=== PATIENT | female | born 1930 | race Caucasian/White ===

== ENCOUNTER → 2017-09-17 18:16 | Emergency (ER) | payer MEDICARE, BC ==
[~2017-09-17 18:16] MED LIST: Acetaminophen TAB* 325 MG PO ONE; Furosemide IV* 10 MG/ML 2 ML VIAL (20 MG) IV SLOW PU ONE; Iodixanol* (CONTRAST) 320 MG/ML 100 ML SDV IV ONE; Metoprolol Tartrate TAB* 25 MG PO ONE; Nitroglycerin 2% OINT* 1 GM PAK TOPICAL ONE; Nitroglycerin TAB 0.4 MG* 0.4 MG TAB SL ONE
--- NOTE | 2017-09-17 19:22 | RAD ---
INDICATION: Short of breath COMPARISON: July 01, 2017 TECHNIQUE: An AP portable view obtained at 1910 hours is submitted. FINDINGS: Bones/Soft Tissues: There are no acute bony findings. Cardiomediastinal: The mucosal structures appear unchanged but there is limited evaluation due to the mediastinal shift.. Lungs: There is right-sided pneumonectomy with resultant opacification right hemithorax. There are clips in the right mediastinum. The left lung is clear. Pleura: There are no pleural effusions. Other: None IMPRESSION: RIGHT PNEUMECTOMY. NO ACTIVE DISEASE.
[2017-09-17 19:44] LABS: Hematocrit 34 % (35-47); Hemoglobin 10.8 g/dl (12.0-16.0); Mean Corpuscular HGB Conc 32 g/dl (31-36); Mean Corpuscular Hemoglobin 31 pg (27-31); Mean Corpuscular Volume 96 fL (80-97); Mean Platelet Volume 8 um3 (7.4-10.4); Platelet Count 177 10^3/ul (150-450); Red Blood Count 3.51 10^6/ul (4.0-5.4); Red Cell Distribution Width 15 % (10.5-15); White Blood Count 15.8 10^3/ul (3.5-10.8)
[2017-09-17 19:57] LABS: EGFR Non-African American 50.2 (>60)
[2017-09-17 21:03] LABS: ABS Basophils 0.1 10^3/ul (0-0.2); ABS Eosinophils 0 10^3/ul (0-0.6); ABS Lymphocytes 0.7 10^3/ul (1.0-4.8); ABS Monocytes 3.7 10^3/ul (0-0.8); ABS Neutrophils 11.4 10^3/ul (1.5-7.7); ABS Nucleated RBC 0 10^3/ul; Eosinophil % 0.1 % (0-6); Lymphocyte % 4.4 % (25-47); Nucleated Red Blood Cells % 0
--- NOTE | 2017-09-17 23:47 | ED ---
Nik Veras Nilda, scribed for Phill Jha MD on 09/17/17 at 1902 . Respiratory - HPI Summary HPI Summary: This patient is an 87 year old F BIBA to [facility] accompanied by daughter with a chief complaint of constant dyspnea and gurgling while breathing for the past few hours, per triage note. Per daughter, last week, pt had PNA and was treated at [facility] in [facility]. Pt was on O2 and abx for several days. Daughter states pt has one lung due to pneumonectomy s/p lung CA which is currently in remission. Pt was eventually discharged and brought home. 4 days ago pt was scheduled for TAVR at [place]. 3 days ago TAVR was performed and pt was released from hospital at 1130 this morning. Pt was on O2 after the surgery but is not normally on O2 at home. During operation, temporary external pacemaker was used, since daughter states "heart temporarily forgot how to beat on its own." Daughter notes this resolved and surgeons decided not to place pacemaker. Per daughter, after returning home, pt experienced coughing and reported dyspnea after getting up to use the bathroom at home. Symptoms aggravated and alleviated by nothing. Patient reports rhinorrhea, but denies pain. Daughter reports pt became blue in the eyes and hands during ambulance ride. PMHx includes lung cancer and aortic stenosis 2012. No PMHx COPD. Pt was given NTG and ASA LAMP WIRER by EMS. Her interventionalist flight control manager who performed the TAVR is Dr. Gomez . - History of Current Complaint Chief Complaint: EDRespiratoryDistress Stated Complaint: SOB Time Seen by Provider: 09/17/17 18:30 Hx Obtained From: Patient, Family/Cnc Milling Machine Operator - daughter, Medical Records - triage note Onset/Duration: Sudden Onset, Lasting Hours, Still Present Timing: Constant Pain Intensity: 0 Character: Dyspnea at Rest Aggravating Factor(s): Nothing Alleviating Factor(s): Nothing Associated Signs and Symptoms: SOB - Allergy/Home Medications Allergies/Adverse Reactions: Allergies Allergy/AdvReac Type Severity Reaction Status Date / Time No Known Allergies Allergy Verified 09/17/17 18:25 PMH/Surg Hx/FS Hx/Imm Hx Endocrine/Hematology History: Denies: Hx Diabetes Cardiovascular History: Reports: Hx Angina, Hx Hypertension, Hx Valvular Heart Disease - aortic stenosis Denies: Hx Coronary Artery Disease, Hx Hypercholesterolemia, Hx Myocardial Infarction Respiratory History: Reports: Hx Lung Cancer Denies: Hx Asthma, Hx Chronic Obstructive Pulmonary Disease (COPD) - Surgical History Surgery Procedure, Year, and Place: Pneumonectomy, TAVR ([facility] [place]) Infectious Disease History: No Infectious Disease History: Denies: Hx Shingles, Hx Tuberculosis, Traveled Outside the [place] in Last 30 Days - Family History Known Family History: Positive: Hypertension - Social History Occupation: Retired Lives: With Family Alcohol Use: Rare Substance Use Type: Reports: Sedatives Substance Use Comment - Amount & Last Used: perscribed Lorazepam Smoking Status (MU): Former Smoker Have You Smoked in the Last Year: No Review of Systems Negative: Fever, Chills Positive: Other - per daughter, pt eyes turned blue (resolved). Negative: Erythema Positive: Nasal Discharge. Negative: Sore Throat Positive: Shortness Of Breath, Cough, Other - dyspnea with gurgling while breathing Negative: Abdominal Pain, Vomiting, Nausea Negative: dysuria, hematuria Positive: Other - per daughter, hands turned blue (resolved). Negative: Myalgia , Edema Negative: Rash Neurological: Other - negative dizziness All Other Systems Reviewed And Are Negative: Yes Physical Exam - Summary Physical Exam Summary: Constitutional: Well-developed, Well-nourished, Alert. (-) Distressed Skin: Warm, Dry HENT: Normocephalic; Atraumatic Eyes: Conjunctiva normal Neck: Musculoskeletal ROM normal neck. (-) JVD, (-) Stridor, (-) Tracheal deviation Cardio: Rhythm regular, rate normal, Heart sounds normal; Intact distal pulses; The pedal pulses are 2+ and symmetric. Radial pulses are 2+ and symmetric. (-) Murmur Pulmonary/Chest wall: (+) Respiratory distress, (-) Wheezes, (+) Rales on left side, tachypnea Abd: Soft, (-) Tenderness, (-) Distension, (-) Guarding, (-) Rebound Musculoskeletal: (-) Edema Lymph: (-) Cervical adenopathy Neuro: Alert, Oriented x3 Psych: Mood and affect Normal Triage Information Reviewed: Yes Vital Signs On Initial Exam: Initial Vitals Temp Pulse Resp BP Pulse Ox 98.5 F 100 18 148/87 98 09/17/17 18:20 09/17/17 18:20 09/17/17 18:20 09/17/17 18:20 09/17/17 18:20 Vital Signs Reviewed: Yes Diagnostics - Vital Signs Vital Signs Temp Pulse Resp BP Pulse Ox 09/17/17 18:52 92 09/17/17 18:20 98.5 F 100 18 148/87 98 - Laboratory Lab Results: Lab Results 09/17/17 09/17/17 09/17/17 Range/Units 19:25 19:25 19:25 WBC 15.8 H (3.5-10.8) 10^3/ul RBC 3.51 L (4.0-5.4) 10^6/ul Hgb 10.8 L (12.0-16.0) g/dl Hct 34 L (35-47) % MCV 96 (80-97) fL MCH 31 (27-31) pg MCHC 32 (31-36) g/dl RDW 15 (10.5-15) % Plt Count 177 (150-450) 10^3/ul MPV 8 (7.4-10.4) um3 Neut % (Auto) 71.9 (38-83) % Lymph % (Auto) 4.4 L (25-47) % [place] % (Auto) 23.3 H (1-9) % Eos % (Auto) 0.1 (0-6) % Baso % (Auto) 0.3 (0-2) % Absolute Neuts (auto) 11.4 H (1.5-7.7) 10^3/ul Absolute Lymphs (auto) 0.7 L (1.0-4.8) 10^3/ul Absolute Monos (auto) 3.7 H (0-0.8) 10^3/ul Absolute Eos (auto) 0 (0-0.6) 10^3/ul Absolute Basos (auto) 0.1 (0-0.2) 10^3/ul Absolute Nucleated RBC 0 10^3/ul Nucleated RBC % 0 Hem Pathologist Commnt Pending Sodium 136 (133-145) mmol/L Potassium 4.6 (3.5-5.0) mmol/L Chloride 102 (101-111) mmol/L Carbon Dioxide 26 (22-32) mmol/L Anion Gap 8 (2-11) mmol/L BUN 17 (6-24) mg/dL Creatinine 1.04 H (0.51-0.95) mg/dL Est GFR ( Amer) 64.6 (>60) Est GFR (Non-Af Amer) 50.2 (>60) BUN/Creatinine Ratio 16.3 (8-20) Glucose 143 H (70-100) mg/dL Lactic Acid (0.5-2.0) mmol/L Calcium 9.5 (8.6-10.3) mg/dL Total Bilirubin 0.70 (0.2-1.0) mg/dL AST 19 (13-39) U/L ALT 7 (7-52) U/L Alkaline Phosphatase 81 (34-104) U/L Troponin I 0.25 H* (<0.04) ng/mL B-Natriuretic Peptide 328 H ( - 100) pg/mL Total Protein 6.8 (6.4-8.9) g/dL Albumin 3.7 (3.2-5.2) g/dL Globulin 3.1 (2-4) g/dL Albumin/Globulin Ratio 1.2 (1-3) 09/17/17 09/17/17 Range/Units 19:25 21:28 WBC (3.5-10.8) 10^3/ul RBC (4.0-5.4) 10^6/ul Hgb (12.0-16.0) g/dl Hct (35-47) % MCV (80-97) fL MCH (27-31) pg MCHC (31-36) g/dl RDW (10.5-15) % Plt Count (150-450) 10^3/ul MPV (7.4-10.4) um3 Neut % (Auto) (38-83) % Lymph % (Auto) (25-47) % [place] % (Auto) (1-9) % Eos % (Auto) (0-6) % Baso % (Auto) (0-2) % Absolute Neuts (auto) (1.5-7.7) 10^3/ul Absolute Lymphs (auto) (1.0-4.8) 10^3/ul Absolute Monos (auto) (0-0.8) 10^3/ul Absolute Eos (auto) (0-0.6) 10^3/ul Absolute Basos (auto) (0-0.2) 10^3/ul Absolute Nucleated RBC 10^3/ul Nucleated RBC % Hem Pathologist Commnt Sodium (133-145) mmol/L Potassium (3.5-5.0) mmol/L Chloride (101-111) mmol/L Carbon Dioxide (22-32) mmol/L Anion Gap (2-11) mmol/L BUN (6-24) mg/dL Creatinine (0.51-0.95) mg/dL Est GFR ( Amer) (>60) Est GFR (Non-Af Amer) (>60) BUN/Creatinine Ratio (8-20) Glucose (70-100) mg/dL Lactic Acid 1.2 (0.5-2.0) mmol/L Calcium (8.6-10.3) mg/dL Total Bilirubin (0.2-1.0) mg/dL AST (13-39) U/L ALT (7-52) U/L Alkaline Phosphatase (34-104) U/L Troponin I 0.25 H* (<0.04) ng/mL B-Natriuretic Peptide ( - 100) pg/mL Total Protein (6.4-8.9) g/dL Albumin (3.2-5.2) g/dL Globulin (2-4) g/dL Albumin/Globulin Ratio (1-3) Result Diagrams: 09/17/17 19:25 09/17/17 19:25 Lab Statement: Any lab studies that have been ordered have been reviewed, and results considered in the medical decision making process. - Radiology CXR Radiology Interpretation Completed By: Radiologist - CXR, per radiologist, reveals right pneumectomy. No active disease. Dr. Jha has reviewed this radiology report. - EKG 184 EKG Interpretation: 105 bpm, pacemaker artifacts, no STEMI Re-Evaluation - Re-Evaluation First Eval Re-Evaluation Time: 21:30 Change: Improved Second Eval Re-Evaluation Time: 22:30 Change: Unchanged Third Eval Re-Evaluation Time: 23:30 Change: Unchanged - headache Disposition - Course Assessment/Plan: This patient is an 87 year old F [facility] accompanied by daughter with a chief complaint of constant dyspnea and gurgling while breathing for the past few hours, per triage note. Per daughter, last week, pt had PNA and was treated at [facility] in [facility]. Pt was on O2 and abx for several days. Daughter states pt has one lung due to pneumonectomy s/p lung CA which is currently in remission. Pt was eventually discharged and brought home. 4 days ago pt was scheduled for TAVR at [facility]. 3 days ago TAVR was performed and pt was released from hospital at 1130 this morning. Pt was on O2 after the surgery but is not normally on O2 at home. During operation, temporary external pacemaker was used, since daughter states "heart temporarily forgot how to beat on its own." Daughter notes this resolved and surgeons decided not to place pacemaker. Per daughter, after returning home, pt experienced coughing and reported dyspnea after getting up to use the bathroom at home. Symptoms aggravated and alleviated by nothing. Patient reports rhinorrhea, but denies pain. Daughter reports pt became blue in the eyes and hands during ambulance ride. PMHx includes lung cancer and aortic stenosis 2012. No PMHx COPD. Pt was given NTG and ASA LAMP WIRER by EMS. Pending EKG and CXR. EKG reveals 105bpm, pacemaker artifacts, and no STEMI. CXR, per radiologist, reveals right pneumectomy. No active disease. Dr. Jha has reviewed this radiology report. 1929 Dr. Carrillo (hosptalist) agrees with plan to transfer patient back to [facility]. 2026 [facility] [place] reports that there are no beds available for pt. 2053 Dr. Gomez ([facility] flight control manager, [facility]): discussed case. Dr. Jha noted that we don't have echocardiography on weekend so we need to transfer back to their facility. Dr. Gomez believes pt has flash edema due to being off beta and channel blockers. He recommends starting ENRIQUE Inhibitor and admitting to [facility]. He would like hospitalist to keep him informed on patient. 2114 Dr. Carrillo ( hospitalist) will be consulting with our own flight control manager and will discuss with Dr. Gomez. [address] Carrillo (hospitalist) who consulted with Dr. Teran (cardiology) who spoke with Dr. Gomez. Dr. Gomez accepts pt. In the ED course, the patient was given Lasix and NTG. Pt is stable and will be transferred to [facility] with Dx of flash pulmonary edema. Pt understands and is agreeable with this plan. I believe the patient's CXR does not reflect the degree of her pulmonary edema evidenced by rales and respiratory distress on physical exam, and that the CXR reflects a pulmonary edema partially treated by EMS prior to being obtained. Signed out to Dr. Booker with confirmation of Jason's acceptance pending with [facility] transfer center. Our flight control manager had a conversation with Dr. Gomez on a private cell phone whereby Dr. Gomez accepted the patient, according to a report by Dr. Carrillo to me. This will all be confirmed with [facility]. - Diagnoses Provider Diagnoses: Flash pulmonary edema - Physician Notifications Discussed Care Of Patient With: Leena Carrillo - Hospitalist Time Discussed With Above Provider: 19:30 Instructed by Provider To: Other - agrees with plan to transfer patient back to [facility]. - Critical Care Time Critical Care Time: 75-104 min Discharge - Discharge Plan Condition: Stable Disposition: TRANS HIGHER LVL OF CARE FAC Discharge Disposition Comment: transfer to [facility] Referrals: Tanika Alas MD [Primary Care Provider] - The documentation as recorded by the Nik royal Nilda accurately reflects the service I personally performed and the decisions made by me, Phill Jha MD.
[2017-09-18 02:35] VITALS: BP 126/67
--- NOTE | 2017-09-18 08:07 | RAD ---
Indication: Pulmonary embolus, shortness of breath. Patient is status post right pneumonectomy Contrast: Administered 52.3 ml of VISAPAQUE 320 mg/ml CTA of the chest was performed in the axial plane. Coronal and sagittal reconstructed images were obtained. No prior study is available for comparison. The pulmonary arterial tree is well opacified. No definite filling defects are noted to suggest pulmonary embolus. The aorta demonstrates no evidence of aortic dissection. There has been aortic graft at the aortic valve present. The patient status post right pneumonectomy. There is fluid and pleural thickening in the right pleural space. The heart demonstrates no pericardial effusion. Atherosclerotic aorta is noted. The lung mitchell demonstrate no evidence of alveolar consolidation. No focal nodules are identified. Multiple surgical clips are noted in the abram hepatis. Otherwise the abdominal organs are unremarkable. IMPRESSION: Patient status post right pneumonectomy. No evidence of pulmonary embolus is noted. Patient appears to have had a aortic valve replacement and graft.
--- NOTE | 2017-09-18 09:17 | CONS ---
CC: Dr. Khan; Dr. Avila * CONSULTATION REPORT: DATE OF CONSULT: 09/17/17 - EMERGENCY DEPT PRIMARY CARE PROVIDER: Dr. Khan. INORGANIC CHEMICAL TECHNICIAN: Dr. Avila. CHIEF COMPLAINT: Shortness of breath. HISTORY OF PRESENT ILLNESS: Ms. Callejas is an 87-year-old female who, at the end of August, was hospitalized [place] where she was diagnosed with pneumonia and treated for that. The patient then was admitted earlier this week at [facility] where she underwent a transaortic valve replacement on 09/15/17. The patient had been doing well postoperatively. She was discharged from [facility] today, 09/17/17, and was driven home by her daughter. The patient was home for approximately 3 to 4 hours when she noted that she needs to go to the bathroom. She got up from the couch where she was watching TV and reading, was walking to the bathroom, stepped up 1 step and suddenly became very short of breath. The patient was so short of breath an ambulance called right away and she was brought to the emergency room. The patient denies any associated chest pain, diaphoresis, or nausea with the severe shortness of breath. The patient states that she has never had symptoms like this in the past. The patient states that her breathing now feels completely comfortable; however, she is requiring supplemental oxygen to maintain oxygen saturations in the low 90s. The patient has had a cough recently ; however, she is not able to bring up any sputum and she has had no fevers per her daughter. PAST MEDICAL HISTORY: 1. Severe aortic stenosis, status post TAVR, 09/15/17. 2. History of lung cancer, status post right pneumonectomy. 3. Hypertension. 4. Peripheral neuropathy. 5. Anxiety. PAST SURGICAL HISTORY: 1. Right pneumonectomy in 1998. 2. Tonsillectomy. 3. Appendectomy. 4. Knee arthroscopic surgery. 5. Cholecystectomy. 6. Right hip fracture repair. 7. Detached retina of the left eye repair. MEDICATIONS: 1. Spironolactone 25 mg p.o. daily. 2. Metoprolol tartrate 25 mg p.o. twice daily. 3. Ativan 0.5 mg p.o. twice daily. 4. Donepezil 5 mg p.o. q.h.s. 5. Omeprazole 20 mg p.o. daily. 6. Bupropion 75 mg p.o. q.h.s. 7. Nitroglycerin 0.4 mg subcu 5 minutes p.r.n. chest pain. 8. Aspirin 81 mg p.o. daily. 9. Colace 100 mg p.o. q.h.s. p.r.n. constipation. 10. Potassium chloride 20 mEq p.o. every other day. 11. Plavix 75 mg p.o. daily. 12. Multivitamin 1 tab p.o. daily. 13. Coenzyme Q10 100 mg p.o. daily. 14. Biotin 1000 mg p.o. daily. 15. Ginkgo Biloba 60 mg p.o. daily. 16. Vinpocetine 5 mg p.o. daily. ALLERGIES: No known drug allergies. SOCIAL HISTORY: The patient is a former smoker. She quit approximately 30 years ago. She does not drink alcohol. She works in the Department of [employer]. She is . She has 3 children. Her daughter, Hayley, and her son, Won, are her healthcare proxies. REVIEW OF SYSTEMS: Complete 11-system review of systems is obtained. Pertinent positives and negatives as per HPI and otherwise negative besides mild feet swelling that was noted today by her daughter. PHYSICAL EXAM: Blood pressure 139/72, pulse 105, respirations 17, temp 98.5, O2 sat 97% on room air. General: The patient is a well-developed, elderly female, sitting in the stretcher, appearing to be in no acute distress. HEENT: Pupils are round. There are obvious changes to the left eye what the patient states that she is almost essentially blind. Extraocular muscles are intact. Oropharynx is clear. Oral mucosa is moist. The patient wears full dentures and partial set of lower dentures. There is no submandibular, cervical, or supraclavicular adenopathy. There is a clean dry gauze bandage covered with Tegaderm to the right neck. Thyroid is not enlarged. No thyroid nodules noted. Cardiac: Normal S1 and S2. Heart rate is mildly tachycardic, but regular. There are no murmurs noted. There is no lower extremity edema noted. Pulmonary : I am able to hear breath sounds across the patient's entire chest. These are somewhat tubular in nature. There are no crackles heard. Of note, the patient is status post right pneumonectomy. Abdomen: Bowel sounds are present. Abdomen is soft, nontender, nondistended. Musculoskeletal: There is no cyanosis or clubbing of the digits. There is full active range of motion of all 4 extremities. Skin is warm and dry. There are no rashes. The patient does have a blue green discoloration noted to her right madrigal and right medial ankle. Neuro: Cranial nerves II through XII are grossly intact. Sensation is intact to light touch throughout. Strength is 5/5 and symmetric in both upper and lower extremities bilaterally. Psych: The patient is alert. She is oriented to place and situation though she is foggy on some details of her history. DIAGNOSTIC STUDIES/LAB DATA: WBC 15.8, hemoglobin 10.8, hematocrit 34, and platelets 177. Sodium 136, potassium 4.6, chloride 102, CO2 26, BUN 17, creatinine 1.04, glucose 143, lactic acid 1.2, calcium 9.5. Bilirubin 0.7, AST 19, ALT 7, alk phos 81. Troponin 0.25, on repeat 0.25. BNP 328. Albumin 3.7. Chest x-ray, which was obtained post treatment with Lasix and nitroglycerin reveals status post right pneumonectomy and no active disease. EKG revealed sinus tachycardia without any acute ST-T wave abnormalities. CTA chest: The patient is status post right pneumonectomy. The right chest cavity is replaced by fluid and enclosed in a pleural rind. The left lung is hyperinflated and clear. Negative for pulmonary embolism, negative for thoracic aortic aneurysm or dissection. ASSESSMENT AND PLAN: Ms. Callejas is an 87-year-old female, who is status post transcatheter aortic valve replacement on 09/15/17, who now presents to the emergency room with the sudden onset of severe shortness of breath and is persistently hypoxic without clear cause. 1. Respiratory distress and acute hypoxic respiratory failure. The etiology of this is not clear. The patient did receive nitrates in the ambulance, so perhaps her chest x-ray cleared some in terms of there being pulmonary edema; however, her lungs are clear and she is still hypoxic. The patient has now been ruled out for pulmonary embolism. I am concerned that she needs an evaluation to ensure that her new aortic valve is functioning appropriately. We are not able to provide echocardiogram until this coming Wednesday. I did speak with Dr. Teran from Cardiology, who recommended transfer back to [facility] for evaluation of her aortic valve. At this point, the patient is stable. I will give her her metoprolol 25 mg now. We will monitor for recurrent symptoms or ongoing/worsening hypoxia. The patient will also continue Plavix 75 mg daily, which was started post transcatheter aortic valve replacement. 2. Hypertension. The patient will continue on her metoprolol tartrate 25 mg twice daily and spironolactone. Verapamil 240 mg daily was discontinued during her hospitalization for her transcatheter aortic valve replacement as she did have an episode of her block during that procedure. 3. Cognitive impairment. Continue donepezil. 4. Depression/anxiety. Continue bupropion and lorazepam. At this point, the patient will be transferred to [facility]. Dr. Gomez has accepted the patient in transfer. TIME SPENT: Sixty-five minutes was spent admitting this patient and coordinating the transfer. [id number]/[facility] #: [id number] MTDD
== END | disposition short-term general hospital (02) ==
LOC: ED 18:16
DX: J81.0 Acute pulmonary edema (principal); R09.81 Nasal congestion; R05 Cough; Z85.118 Personal history of other malignant neoplasm of bronchus and lung; I20.9 Angina pectoris, unspecified; I10 Essential (primary) hypertension; I35.0 Nonrheumatic aortic (valve) stenosis; Z87.891 Personal history of nicotine dependence
CPT/HCPCS: 36415; 71045; 71275; 80053; 83605; 83880; 84484; 85025; 85060; 93005; 96374; 99284; A9270-GY; J1940; Q9967

== ENCOUNTER 2017-10-29 11:58 | Observation (INO) | payer MEDICARE, BC ==
[2017-10-29] MEDS ORDERED: Aspirin Low Dose CHEW TAB* 81 MG PO ONE (12:14)
--- NOTE | 2017-10-29 12:58 | RAD ---
Indication: Chest pain. Single frontal view of the chest performed at 1225 hours was reviewed. Comparison is made with previous exam dated September 17, 2017. Mediastinal structures are shifted towards the right. A shunt is status post right pneumonectomy with opacification of the right lung field. Left lung field is clear. IMPRESSION: RIGHT PNEUMONECTOMY. LEFT LUNG FIELD IS CLEAR.
[2017-10-29 13:01] LABS: Hematocrit 33 % (35-47); Hemoglobin 10.6 g/dl (12.0-16.0); Mean Corpuscular HGB Conc 32 g/dl (31-36); Mean Corpuscular Hemoglobin 29 pg (27-31); Mean Corpuscular Volume 92 fL (80-97); Mean Platelet Volume 8 um3 (7.4-10.4); Platelet Count 193 10^3/ul (150-450); Red Blood Count 3.62 10^6/ul (4.0-5.4); Red Cell Distribution Width 15 % (10.5-15); White Blood Count 13.3 10^3/ul (3.5-10.8)
[2017-10-29 13:03] LABS: ABS Basophils 0 10^3/ul (0-0.2); ABS Eosinophils 0 10^3/ul (0-0.6); ABS Lymphocytes 0.6 10^3/ul (1.0-4.8); ABS Neutrophils 8.6 10^3/ul (1.5-7.7); ABS Nucleated RBC 0 10^3/ul; Eosinophil % 0.1 % (0-6); Lymphocyte % 4.9 % (25-47); Nucleated Red Blood Cells % 0
[2017-10-29 13:10] LABS: INR 1.25 (0.77-1.02)
[2017-10-29 13:17] LABS: EGFR Non-African American 60.1 (>60)
[2017-10-29] MEDS ORDERED: Acetaminophen TAB* 325 MG PO ONE (13:34)
[2017-10-29 14:38] LABS: Urine Appearance Clear; Urine Blood 1+ (Negative); Urine Color Yellow; Urine Ketones Trace (Negative); Urine Protein Negative (Negative); Urine Specific Gravity 1.011 (1.010-1.030); Urine Urobilinogen Negative (Negative)
[2017-10-29] MEDS ORDERED: Iodixanol* (CONTRAST) 320 MG/ML 100 ML SDV IV ONE (14:43)
--- NOTE | 2017-10-29 15:25 | RAD ---
INDICATION: Chest pain elevated d-dimer a history of right lung cancer status post right pneumonectomy. COMPARISON: Comparison is made with a prior CT angiogram from September 17, 2017 and a prior chest x-ray study from October 29, 2017. TECHNIQUE: A CT angiogram of the chest was performed with intravenous following intravenous injection of 49 ml of Visipaque 320 nonionic contrast. Contiguous axial sections were obtained from the lung apices through the lung bases. Images were reconstructed in the coronal and sagittal planes. FINDINGS: There is relatively homogeneous opacification of the pulmonary arteries. No intraluminal filling defect or pulmonary embolism is seen. The heart appears within normal limits in size. There is a trace pericardial effusion or pericardial thickening present which is unchanged. There appears to be an aortic valve replacement graft in place. The aorta demonstrates homogeneous contrast opacification and is normal in caliber. No significant enlarged mediastinal or hilar lymph nodes are seen. The patient is status post right pneumonectomy. There is filling in of the right hemithorax with fluid or fibrous tissue. There is shift of cardiac and mediastinal structures toward the right side consistent with normal postoperative appearance. There is a moderate dorsal scoliosis convex toward the right side. No significant focal osseous abnormality is seen. IMPRESSION: 1. NO EVIDENCE FOR PULMONARY EMBOLISM. 2. STATUS POST RIGHT PNEUMONECTOMY, NO EVIDENCE FOR RECURRENT DISEASE. 3. TRACE PERICARDIAL EFFUSION OR PERICARDIAL THICKENING, UNCHANGED.
[2017-10-29] MEDS ORDERED: Nitroglycerin TAB 0.4 MG* 0.4 MG TAB SL PRN (18:57)
[2017-10-29] MEDS ORDERED: Docusate CAP* 100 MG PO PRN (18:57)
[2017-10-29] MEDS ORDERED: Furosemide IV* 10 MG/ML 2 ML VIAL (20 MG) IV ONE (19:07)
[2017-10-29] MEDS ORDERED: Magnesium Sulfate IV* 3 GM in NS 0.9% 100 ML* 100 ML IVPB ONE (19:11)
--- NOTE | 2017-10-29 20:25 | ED ---
Jose Veras Stephanie, scribed for Mimi Arnold MD on 10/29/17 at 1310 . HPI Chest Pain - HPI Summary HPI Summary: The pt is an 87 y/o F presenting to the ED with c/o L sided CP that began at 10: 30 today. The CP is described as soreness. Symptoms include SOB, radiating pain to the L arm and productive cough. The pt denies fever. On 10/18/17, the pt began amoxicillin for PNA; her last dose was completed on 10/25/17. The pt had TAVR on 09/15/17 at the [facility]. The pt returned to [facility] for flash pulmonary edema. - History of Current Complaint Chief Complaint: EDChestPainROMI Time Seen by Provider: 10/29/17 12:14 Hx Obtained From: Patient, Family/Tie Cutter - daughter Onset/Duration: Started Hours Ago - 3, Resolved Timing: Constant Current Severity: Mild Pain Intensity: 4 Pain Scale Used: 0-10 Numeric Chest Pain Location: Left Anterior Chest Pain Radiates: Yes Chest Pain Radiates To:: Arm - L Character: Cough, Productive Aggravating Factor(s): Nothing Alleviating Factor(s): Nothing Associated Signs and Symptoms: Positive: Chest Pain, Shortness of Breath, Productive Cough, Other: - L arm pain. Negative: Fever - Allergy/Home Medications Allergies/Adverse Reactions: Allergies Allergy/AdvReac Type Severity Reaction Status Date / Time No Known Allergies Allergy Verified 09/17/17 18:25 Home Medications: Home Medications Aspirin EC Low Dose* [Ecotrin EC Low Dose 81 MG*] 81 mg PO DAILY 10/29/17 [ History Confirmed 10/29/17] Clopidogrel TAB* [Plavix TAB*] 75 mg PO DAILY 10/29/17 [History Confirmed ] Diltiazem CD CAP* [Cardizem CD CAP*] 120 mg PO DAILY 10/29/17 [History Confirmed 10/29/17] Ginkgo Biloba (NF) [Ginkgo Biloba Extract (NF)] 60 mg PO DAILY 10/29/17 [ History Confirmed 10/29/17] Multivitamins/Minerals TAB* [Theragran/minerals TAB*] 1 tab PO DAILY 10/29/17 [ History Confirmed 10/29/17] Vinpocetine 5 mg PO DAILY 10/29/17 [History Confirmed 10/29/17] PMH/Surg Hx/FS Hx/Imm Hx Endocrine/Hematology History: Denies: Hx Diabetes Cardiovascular History: Reports: Hx Angina, Hx Hypertension, Hx Valvular Heart Disease - aortic stenosis Denies: Hx Coronary Artery Disease, Hx Hypercholesterolemia, Hx Myocardial Infarction Respiratory History: Reports: Hx Lung Cancer Denies: Hx Asthma, Hx Chronic Obstructive Pulmonary Disease (COPD) - Surgical History Surgery Procedure, Year, and Place: Pneumonectomy, TAVR ([facility] [place]) Infectious Disease History: No Infectious Disease History: Denies: Hx Shingles, Hx Tuberculosis, Traveled Outside the [place] in Last 30 Days - Family History Known Family History: Positive: Hypertension - Social History Occupation: Retired Lives: With Family Alcohol Use: Rare Substance Use Type: Reports: Sedatives Substance Use Comment - Amount & Last Used: perscribed Lorazepam Smoking Status (MU): Former Smoker Have You Smoked in the Last Year: No Review of Systems Negative: Fever Positive: Chest Pain Positive: Cough Positive: Other - L arm pain All Other Systems Reviewed And Are Negative: Yes Physical Exam - Summary Physical Exam Summary: Appearance: Ill-appearing, moderate pain distress, Well-nourished, Speaks full sentences. Skin: Warm, color reflects adequate perfusion Head: Normal Head/Face inspection Eyes: Conjunctiva clear ENT: Normal inspection Neck: Supple, no nodes, no JVD. Respiratory: Course rhonchi throughout, Normal breath sounds, no respiratory distress Cardio: RRR, No murmur, pulses normal, brisk capillary refill Abdomen: soft, nontender Bowel sounds: present Musculoskeletal: Strength Intact/ ROM intact. No calf tenderness. No edema. Neuro: Alert, muscle tone normal, facial symmetry, speech normal, sensory/motor intact Psychological: Normal Triage Information Reviewed: Yes Vital Signs On Initial Exam: Initial Vitals Temp Pulse Resp BP Pulse Ox 98.4 F 84 20 147/82 96 10/29/17 11:59 10/29/17 11:59 10/29/17 11:59 10/29/17 11:59 10/29/17 11:59 Vital Signs Reviewed: Yes Diagnostics - Vital Signs Vital Signs Temp Pulse Resp BP Pulse Ox 10/29/17 11:59 98.4 F 84 20 147/82 96 - Laboratory Result Diagrams: 10/29/17 12:53 10/29/17 12:53 Lab Statement: Any lab studies that have been ordered have been reviewed, and results considered in the medical decision making process. - Radiology CXR Xray Interpretation: No Acute Changes Radiology Interpretation Completed By: Radiologist - RIGHT PNEUMONECTOMY. LEFT LUNG FIELD IS CLEAR. - CT Chest/thorax CTA CT Interpretation: Positive (See Comments) CT Interpretation Completed By: Radiologist - 1. NO EVIDENCE FOR PULMONARY EMBOLISM. 2. STATUS POST RIGHT PNEUMONECTOMY, NO EVIDENCE FOR RECURRENT DISEASE. 3. TRACE PERICARDIAL EFFUSION OR PERICARDIAL THICKENING, UNCHANGED. - EKG 12:05 Cardiac Rate: NL EKG Rhythm: Sinus Rhythm - [address] Segment: Non-Specific Ectopy: None EKG Interpretation: nml AVCT, prolonged IVCT with RBBB and LAFB, nml QTc, Left axis (-88) EKG Comparison: No Significant Change - compared to 09/17/17 Re-Evaluation - Re-Evaluation First Eval Re-Evaluation Time: 13:10 Change: Worse - Daughter reports the pt has a ESCALERA. Second Eval Re-Evaluation Time: 14:30 Change: Unchanged - O2 stats were 89-90 on room air. ED physician provided O2. Chest Pain Course/Dx - Course Course Of Treatment: ED physician reviewed [facility] Medical packet by Dr. Tanika Khan.ED physician reviewed electronic summary from loop recorder. At 14:12, ED physician paged Dr. Poe who recommended a repeat proponin at 4:[address] Merino agrees to admit the pt. - Diagnoses Provider Diagnoses: Chest pain Discharge - Discharge Plan Condition: Stable Disposition: ADMITTED TO [facility] Patient Education Materials: Chest Pain (ED) Referrals: Tanika Khan MD [Primary Care Provider] - Juan Avila MD [Medical Doctor] - 3 Days Additional Instructions: We have given you a copy of all of your labs and xray studies done today. You did not have any arrythmias while you were here. We discussed your care with Dr. Isaac Poe, covering for Dr. Avila. Return to the ER if you have any new or worsening symptoms. The documentation as recorded by the Jose royal Stephanie accurately reflects the service I personally performed and the decisions made by , Mimi Arnold MD.
[2017-10-29] MEDS ORDERED: Donepezil TAB* 5 MG PO SCH (21:00)
[2017-10-29] MEDS ORDERED: buPROPion TAB* 75 MG PO SCH (21:00)
[2017-10-29] MEDS: LORazepam TAB(*) 0.5 MG PO SCH (21:17)
[2017-10-29] MEDS: Metoprolol Tartrate TAB* 25 MG PO SCH (21:17)
[2017-10-29] MEDS ORDERED: Acetaminophen TAB* 325 MG PO PRN (21:37)
--- NOTE | 2017-10-29 22:38 | HP ---
HISTORY AND PHYSICAL: DATE OF ADMISSION: 10/29/17 ADMITTING PROVIDER: Ryan Merino MD PRIMARY CARE PHYSICIAN: Tanika Khan MD PRIMARY DIRECTOR OF OCCUPATIONAL HEALTH: Dr. Avila. CHIEF COMPLAINT: Left shoulder pain radiating to chest and down arm, intermittent shortness of breath. HISTORY OF PRESENT ILLNESS: Sofia Callejas is an 87-year-old female with past medical history of severe aortic stenosis, status post TAVR on 09/15/17 complicated by flash pulmonary edema, squamous cell carcinoma 18 years ago, status post right pneumonectomy, hypertension, peripheral neuropathy, anxiety, concern for possible transient complete heart block, some SVT on loop recorder on 10/21/17 versus 10/24/17 lasting 82 seconds, 300 beats per minute. The patient developed chest pain night prior and "could not breathe." Her eyes "rolled back in her head." History is supplemented by daughter, Hayley Scott , and she was shaking by the morning time around 10:30 a.m., she developed left shoulder pain that radiated to her chest and neck. A visiting nurses service was there and samia some labs. She presented to the [facility]. She, at that time, had 10/10 pain, with first nitro dropped to 6/10 and then after second nitro, 3/4 and then presented to [facility], was wanting to take a third nitro and on-call video production assistant recommended presentation to [facility]. 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 Her troponins have been 0.33 initially, then dropped to 0.32, and then was able to add on to the home labs and it was 0.33 again with no prior readings, were 0.125 back on 09/17/17. Dr. Poe was consulted by Dr. Arnold who recommended discharge; however, the patient was then noted to desaturate to 87% and maintained O2 saturations for about an hour. She does not recall if she was short of breath at that time or had any palpitations. She did recently finish up a course of antibiotics, which is thought to possibly be amoxicillin, but not clear. She had started it when she was visiting her son in the [facility] and was diagnosed with acute bronchitis. This loop recorder episode was that Wednesday night and she did get very short of breath at that time and was almost presented to the emergency room there in the [facility]. Daughter reports that her legs were quite swollen on return to her care that Wednesday and notably was not following a low salt diet at that time under the care of the patient's son. The patient is now chest pain free. She has been coughing a little bit, yesterday it was worse , not very productive. She sleeps with 2 pillows under her head, but denies much paroxysmal nocturnal dyspnea. Her weights have been around the 106 to 109 region she states. On presentation here, she is 47.6 kg (105 pounds). She has weighed [address] Avila's last visit, 10/08/17. She presented to the hospitalist service for admission given her hypoxia to 87% and desire to be set up with home oxygen given her tenuous long and cardiac history. Her BNP was noted to be elevated at 586. She did have an elevated D-dimer to [address] chest angiogram, which showed no evidence of a pulmonary embolism. She did have a trace pericardial effusion or pericardial thickening unchanged. The patient recently had change in medications from metoprolol 25 b.i.d. to 12.5 b.i.d. and initiation of diltiazem 120 mg first dose morning of admission. PAST MEDICAL HISTORY: Squamous cell carcinoma of the lung, status post stem cell treatment 18 years ago and status post right pneumonectomy, hypertension, anxiety, severe aortic stenosis, status post TAVR on 09/15/17, intermittent SVT to the 300s, seemingly for 82 seconds on 10/24/17. Former smoker, only about 2 pack years though. MEDICATIONS: Include: 1. Vinpocetine 5 mg daily. 2. Coenzyme Q10 100 mg p.o. daily. 3. Biotin 1000 mcg p.o. daily. 4. Multivitamin 1 tab p.o. daily. 5. Ginkgo biloba 600 mg daily. 6. Diltiazem 120 mg p.o. daily. 7. Wellbutrin 75 mg p.o. q.h.s. 8. Potassium chloride 20 mEq p.o. every other day. 9. Nitroglycerin 0.4 mg sublingual q.5 minutes p.r.n. 10. Aricept 5 mg p.o. q.h.s. 11. Docusate 100 mg p.o. at bedtime. 12. Omeprazole 20 mg p.o. daily. 13. Metoprolol tartrate 12.5 mg p.o. b.i.d. 14. Ativan 0.5 mg p.o. b.i.d. 15. Spironolactone 20 mg p.o. daily. 16. Clopidogrel (Plavix) 75 mg p.o. daily. 17. Aspirin 81 mg p.o. daily. ALLERGIES: No known drug allergies. FAMILY HISTORY: Her father of heart attack at age 70. Her mother had pancreatic cancer, age 84. SOCIAL HISTORY: The patient is a former smoker, quit 30 years ago, smoked 12 years 1 pack per week. Nonalcoholic drinker currently. No drug use. 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 Her surrogate is daughter, Hayley Scott, who is her medical surrogate and whom she lives with. REVIEW OF SYSTEMS: A complete 14-point review of systems negative except as per HPI. The patient denies any abdominal pain, vomiting. She did have some dizziness and she did actually have some nausea over the last week, but has been maintaining p.o. intake. PHYSICAL EXAMINATION GENERAL APPEARANCE: No acute distress. Sitting up in the hospital bed. VITAL SIGNS: Temperature 98.4, heart rate 84 to 91, respiratory rate between 11 and 24, blood pressure 147/82 to 165/81, saturation initially 96%, dipped down to reportedly 87% on room air. HEENT: Normocephalic, atraumatic. Pupils equally round and reactive to light. Extraocular motions intact. NECK: Supple. No cervical lymphadenopathy. Mucous membranes are moist. PULMONARY: Clear to auscultation on the left with no noman wheezing, rales, or rhonchi, some referred breath sounds on the right more distantly auscultated. CARDIOVASCULAR: Regular rate and rhythm. No murmurs, rubs, or gallops. ABDOMEN: Soft, nontender, distended. No peritoneal signs. No rebound or guarding. No Keenan's sign. EXTREMITIES: Trace edema in the bilateral ankles. Pulses intact. Skin: No lesions, no rashes. NEURO: Lift Mechanic strength 5/5, moving all extremities. Cranial nerves II through XII intact. DIAGNOSTIC STUDIES/LAB DATA: White count 13.3, hemoglobin 10.6, hematocrit 33 , no left shift. INR 1.25, D-dimer 450. ABG, 7.47 pH, pCO2 35, pO2 83, bicarb 26.4. Sodium 137, potassium 3.9, chloride 101, carbon dioxide 29, BUN 15, creatinine 0.89, glucose 124, lactic acid 1.3, magnesium 1.6, calcium 9.6, total bili 0.7, AST 18, ALT 6, alk phos 65. Troponin 0.33 followed by 0.32 and proceeded by 0.33. BNP 586. Albumin 3.7. Urinalysis: Trace ketones, 1+ blood. Flu serology negative both A and B. Imaging: Chest x-ray demonstrated right pneumonectomy, left lung field clear. CT chest angiogram demonstrated no evidence of pulmonary embolism. She is status post right pneumonectomy. No evidence of recurrent disease, trace pericardial effusion or pericardial thickening unchanged. EKG showed normal sinus rhythm, right bundle- branch block, left anterior fascicular block, poor R -wave progression, left axis deviation, T-wave inversion in III. ASSESSMENT AND PLAN: Sofia Callejas is an 87-year-old female status post TAVR and right pneumonectomy, occasional SVT in recent days, and history of suspected flash pulmonary edema, also questionable history of complete heart block, but that is not well documented in the previous notes. She had an EP study on 09/22 showing normal A-V and H-V conduction status post Linq implantation. She is being admitted for transit hypoxia and given her lung and heart disease, consideration for ongoing oxygen supplementation. She only has trace edema in her lower extremities. Her BNP is mildly elevated at 586. We are going to give a 20 mg of IV Lasix now, get strict Is and Os, daily weights, get physical therapy to work with her, and have her Linq loop recorder interrogated. She is chest pain free right now, did require 2 nitros. We will continue nitro p.r.n. sublingually q.[address] Poe was consulted in the ED by Dr. Arnold. We will continue her spironolactone 25 mg daily, her diltiazem 120 mg q.a.m., which is of note, a new medication and metoprolol 12.5 mg p.o. b.i.d. We will replete her lytes, magnesium of 2, which was notably low at 1.6 and may be contributing to some of her shortness of breath if this is initiating any arrhythmic event. Potassium is 3.9, we will keep at 4. We will trending troponins for now. She does have a slight white count, recently treated with possibly amoxicillin or Augmentin. We will try to obtain more records as an outpatient from the [facility] workup. We will add a procalcitonin and sputum culture if able to produce, but hold off on empiric antibiotics for now. She is a DNR/DNI. Medical surrogate is her daughter, Hayley Scott. Continue her Plavix, aspirin 81 mg daily, and/or Ativan standing 0.5 mg b.i.d., her Aricept, docusate, and Prilosec. She can eat a heart healthy diet. No clear indication for repeat echo. She has had 3 in the last month and was scheduled to get one as outpatient in a month from now. [id number]/[facility] #: [id number] JACKIE
[2017-10-30 05:27] LABS: Hematocrit 31 % (35-47); Mean Corpuscular HGB Conc 32 g/dl (31-36); Mean Corpuscular Hemoglobin 29 pg (27-31); Mean Corpuscular Volume 92 fL (80-97); Mean Platelet Volume 8 um3 (7.4-10.4); Platelet Count 164 10^3/ul (150-450); Red Cell Distribution Width 15 % (10.5-15); White Blood Count 9.7 10^3/ul (3.5-10.8)
[2017-10-30 05:38] LABS: EGFR Non-African American 57.2 (>60)
[2017-10-30] MEDS: LORazepam TAB(*) 0.5 MG PO SCH (08:32)
[2017-10-30] MEDS: Metoprolol Tartrate TAB* 25 MG PO SCH (08:34)
[2017-10-30] MEDS ORDERED: Clopidogrel TAB* 75 MG PO SCH (09:00)
[2017-10-30] MEDS ORDERED: Spironolactone TAB* 25 MG PO SCH (09:00)
[2017-10-30] MEDS ORDERED: CMCS: Pantoprazole TAB (NF) 40 MG TAB PO SCH (09:00)
[2017-10-30] MEDS ORDERED: GINKGO BILOBA 40 MG PO SCH (09:00)
[2017-10-30] MEDS ORDERED: Furosemide TAB* 20 MG PO ONE (09:00)
[2017-10-30] MEDS ORDERED: Diltiazem CD CAP* 120 MG PO SCH (09:00)
[2017-10-30] MEDS ORDERED: Aspirin EC Low Dose* 81 MG TAB.EC PO SCH (09:00)
[2017-10-30 11:36] VITALS: BP 111/63
--- NOTE | 2017-10-31 04:06 | DS ---
CC: Dr. Tanika Khan; Dr. Avila * DISCHARGE SUMMARY: DATE OF ADMISSION: 10/29/17 DATE OF DISCHARGE: 10/30/17 PRIMARY CARE PROVIDER: Dr. Tanika Khan. PRIMARY DIAGNOSES: 1. Shortness of breath. 2. Hypoxic respiratory failure. SECONDARY DIAGNOSES: Include: 1. History of pneumonectomy. 2. Hypertension. 3. Severe aortic stenosis, status post transcatheter aortic valve replacement in September of this year. 4. Intermittent supraventricular tachycardia. MEDICATIONS ON DISCHARGE: Unchanged from admission include: 1. Vinpocetine 5 mg. 2. Coenzyme Q10 100 mg daily. 3. Biotin 1000 mcg daily. 4. Multivitamin 1 tab daily. 5. Ginkgo biloba 600 mg daily. 6. Diltiazem 120 mg daily. 7. Wellbutrin 75 mg in the evening. 8. Potassium chloride 20 mEq every other day. 9. Nitroglycerin 0.4 mg sublingual every 5 minutes as needed. 10. Aricept 5 mg in the evening. 11. Docusate 100 mg at bedtime. 12. Omeprazole 20 mg daily. 13. Metoprolol tartrate 12.5 mg daily. 14. Ativan 0.5 mg twice daily. 15. Spironolactone 20 mg daily. 16. Plavix 75 mg daily. 17. Aspirin 81 mg daily. PERTINENT IMAGING STUDIES: CTA, chest and thorax, impression: No evidence of pulmonary embolism, status post right pneumonectomy. No evidence for current disease. Trace pericardial effusion or pericardial thickening unchanged. PERTINENT LABORATORY DATA: Procalcitonin less than 0.1. Troponin-I 0.33, decreased to 0.32 on recheck. BNP 586, similar to the day prior to presentation. HISTORY OF PRESENT ILLNESS AND HOSPITAL COURSE: This is an 87-year-old female with complicated past medical history including severe aortic stenosis, status post a TAVR in September of 2017, which was complicated by a flash pulmonary edema potentially in the setting of transient third-degree heart block, who currently has a loop recorder, which did identify SVT on the and lasting 82 seconds up to 300 beats per minute, presented to the hospital with left shoulder pain radiating toward chest and down her arm with intermittent shortness of breath. She is noted to have been intermittently hypoxic. She is also noted to have spent the last weekend with her son where she was admittedly less strict with salt intake. She was noted to have no additional chest pain since presentation and her breathing is back to normal; however, on ambulation, desatted to 88%, improved with oxygen and/or rest. The patient and daughter are requesting oxygen. Daughter thinks that the patient has been intermittently hypoxic at home. The patient is being setup with oxygen on discharge. The patient feels back to her baseline. There will be no changes in her medication. Reasons to return to the hospital include, but are not limited to, recurrent or worsening symptoms including chest pain, shortness of breath, nausea, vomiting, lightheadedness, loss of consciousness, near loss of consciousness, bleeding from any source, inability to obtain or tolerate medication discussed with the patient. She acknowledged her understanding. FOLLOWUP INSTRUCTIONS: At followup, please: 1. Evaluate for continued need of oxygen, discontinue if not needed. 2. Follow LINQ loop recorder report as SVT was indicated above, maybe etiology of transient shortness of breath. 3. No other specific labs or vitals that need followup. [id number]/[facility] #: [id number] JACKIE
[2017-10-31] MEDS ORDERED: Potassium Chlor TAB* 20 MEQ TAB.ER PO SCH (09:00)
== END 2017-10-30 15:45 | disposition home or self-care (01) ==
LOC: ED 11:58 → MEDTELE 18:17
PROVIDERS: ADMIT Internal Medicine; ATTEND Internal Medicine
DX: R06.02 Shortness of breath (principal); J96.91 Respiratory failure, unspecified with hypoxia; Z90.2 Acquired absence of lung [part of]; I47.1 Supraventricular tachycardia; R07.9 Chest pain, unspecified; R05 Cough; M79.602 Pain in left arm; I10 Essential (primary) hypertension; I35.0 Nonrheumatic aortic (valve) stenosis; Z95.2 Presence of prosthetic heart valve; Z79.82 Long term (current) use of aspirin; Z87.891 Personal history of nicotine dependence; Z85.118 Personal history of other malignant neoplasm of bronchus and lung
CPT/HCPCS: 36415; 36600; 71045; 71275; 80048; 80053; 81003; 81015; 82550; 82553; 82803; 83605; 83735; 83880; 84145; 84484; 85025; 85027; 85379; 85610; 85730; 87502; 93005; 96365; 96366; 99284; A9270-GY; G0378; G8978-GP-CI; G8979-GP-CI; G8980-GP-CI; J1940; J3475; Q9967

== ENCOUNTER → 2019-02-01 08:17 | Day surgery (SDC) | payer MEDICARE, BC ==
[~2019-02-01 08:17] MED LIST changes: -Acetaminophen TAB* 325 MG PO ONE; +Diazepam TAB(*) 5 MG PO PRN; -Furosemide IV* 10 MG/ML 2 ML VIAL (20 MG) IV SLOW PU ONE; -Iodixanol* (CONTRAST) 320 MG/ML 100 ML SDV IV ONE; -Metoprolol Tartrate TAB* 25 MG PO ONE; +NS 0.9% 1000 ML** 1,000 ML IV SCH; -Nitroglycerin 2% OINT* 1 GM PAK TOPICAL ONE; -Nitroglycerin TAB 0.4 MG* 0.4 MG TAB SL ONE; +ceFAZolin 1 GM* X ONE DOSE (AddVan) IVPB
--- NOTE | 2019-02-01 15:58 | HP ---
CC: Dr. Avila; Dr. Hedrick; Dr. Fernandez at [facility] HISTORY AND PHYSICAL: DATE OF ADMISSION: 02/01/19 HISTORY OF PRESENT ILLNESS: Sofia Callejas an 87-year-old patient followed by Dr. Avila with a complex past medical history. She had a pneumonectomy distantly for cancer and in September of this year, she underwent TAVR for severe aortic stenosis. The family and other records document transient complete h eart block. A LINQ was placed. Last week, the LINQ revealed intermittent third-degree heart block, both during the day and with slee p and pacemaker implantation was scheduled for today. The patient denied ever having had syncope, but the patient and her family stated that she had had ep isodes where her mentation would change and she described tunnel vision. The patient has a history of supraventricular tachycardia and hypertension and had been on Cardizem. This was stopped last week. The patient's family states that since the TAVR, she has required more frequent use of oxygen, that i f her oxygen saturations get below 92%, her mentation will change, but no chest pain, no change in he r chronic 2-pillow orthopnea. No fevers, chills, or sweats. PAST MEDICAL HISTORY: The patient has a past medical history: 1. Squamous cell carcinoma, status post stem cell treatment 18 years ago. 2. Status post right pneumonectomy. 3. Aortic valve stenosis, status post TAVR on 09/15/17, complicated by flash pulmonary edema. 4. Hypertension. 5. SVT. 6. Third-degree heart block. 7. Anxiety. 8. GI bleeding, post hip fracture repair in 2012. PAST SURGICAL HISTORY: Includes pneumonectomy in 1998, tonsillectomy in 1949, appendectomy in 1959, arthroscopy of the knee, cholecystectomy in 1988, right hip fracture. OUTPATIENT MEDICATIONS: Include: 1. Potassium chloride 20 mEq a day. 2. Lorazepam 0.5 mg b.i.d. p.r.n. anxiety. 3. Donepezil 5 mg a day. 4. Omeprazole 20 mg a day. 5. Aspirin 81 mg a day. 6. MultiVite 1 tab daily. 7. Coenzyme Q 1 tab daily, dose unknown. 8. Biotin p.r.n. 9. Ginkgo Biloba 60 mg p.r.n. 10. Iron 325 mg b.i.d. 11. Metoprolol 12.5 mg b.i.d. 12. Tylenol p.r.n. 13. Vitamin D3 1000 units a day. 14. Nitroglycerin sublingual p.r.n. 15. Oxygen 2 L p.r.n. ALLERGIES: She has no known drug allergies. SOCIAL HISTORY: The patient is and lives with her daughter in the area. She previously lived in [facility] in [place]. 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 The patient sm oked until 1986, occasional alcohol, no history of recreational drug use. FAMILY HISTORY: Significant that her mother of pancreatic cancer at age 84 and her father of an MD at age 70. REVIEW OF SYSTEMS: Negative for fevers, chills, or sweats. No recent orthopnea. As above, family st ates her mentation changes with hypoxia and frequently using oxygen. No recent changes in bowel or b ladder habits. No constipation, diarrhea, hematuria or dysuria. The only recent medication change w as stopping diltiazem a week ago. She denies awareness of palpitation, racing of the heart. All oth er 14- point review of system was negative. PHYSICAL EXAMINATION GENERAL APPEARANCE: The patient is a petite elderly woman lying in bed surrounded by family, appeari ng comfortable, oxygen on, in no acute distress. HEENT: Pupils are equal, round. Mucous membranes moist. NECK: With good carotid pulses. No audible bruits. No thyromegaly. LUNGS: No breath sounds in the right. In the left, somewhat bronchial breath sounds but no wheezing , rales or rhonchi. CORONARY: S1, S2, regular with a soft systolic murmur heard at the left sternal border. ABDOMEN: Soft, nontender. No hepatosplenomegaly. EXTREMITIES: Lower extremities are warm and free of edema. PSYCH: Psychologically, pleasant cooperative and answers questions. Family answers immediately as w ell as they feel her memory is not ideal. SKIN: Warm, dry without appreciable cyanosis or rashes. Scars are old and well healed. ASSESSMENT AND PLAN: [employer] implantable event monitor downloads reviewed: On 01/21/19 at 10:40 in th e morning, the patient went from sinus rhythm, 75 beats a minute, had 3 PACs in a row and then had 3 dropped sinus beats (transient third- degree heart block). She then had sinus rhythm with the PVC an d dropped beats and this grouping occurred for 6 times. On 01/25/19 at 12:20 in the morning, the pat ieamarilis had normal sinus rhythm with a 7-second ventricular asystole, P-wave appeared to march through, but small and at 12:18, she had 2 4-second pauses. On 01/25/19 at 11:12 a.m., the patient had a 4-se cond period of ventricular asystole. Labs from September 2018 were reviewed showing white count 8, hematocrit 43, platelets 223. Sodium 141 , potassium 4.1, bicarb 33, BUN 21, creatinine 0.88 and normal transaminases. Outpatient cardiac studies include echocardiogram from 09/25/18 showing moderate left ventricular hyp ertrophy, ejection fraction 65 to 70%, bioprosthetic aortic valve with normal function. There was a mass described in the left coronary cusp, trace MR, heavy mitral annular calcification. In summary, Mrs. Callejas is an extremely nice 89-year-old woman with third-degree heart block scheduled for pacemaker but with her history of pneumonectomy, hypoxia, change in mentation with hypoxia, it w as felt that this procedure would be better done with anesthesia, [facility] and it was felt that she would be better done in a center with additional services including thorac ic surgery should an unforeseen complication of her pacemaker implantation occur (risk of pacemaker i mplantation include bleeding, infection, pneumothorax, injury of the heart). After discussion with t hiren patient and her family, decision was made to transfer her to a center with higher level of care. The patient had her TAVR at [facility] and had previously consulted with Dr. Fernandez, Electrop hysiology at [facility], and the decision was made to transfer to [facility] for this p rocedure. Due to the unpredictableness of third-degree heart block, especially in the setting of philomena or aortic valve replacement (TAVR) in association of calcification in the AV node and the situation jc ann in my opinion her rhythm status unpredictable that she be at risk for recurrent high-degree AV b lock even off the diltiazem. She is being transferred from our center to [facility]. [id number]/[facility] #: [id number]
== END | disposition short-term general hospital (02) ==
LOC: CHICATH 08:17
PROVIDERS: ATTEND Specialist
DX: I44.2 Atrioventricular block, complete (principal); I47.1 Supraventricular tachycardia; I48.0 Paroxysmal atrial fibrillation; I49.5 Sick sinus syndrome; R09.02 Hypoxemia; Z53.09 Procedure and treatment not carried out because of other contraindication
CPT/HCPCS: J0690

== ENCOUNTER 2019-02-14 21:51 | Observation (INO) | payer MEDICARE, BC ==
--- OUTSIDE RECORDS SUMMARY | 2019-02-14 21:59 | XMS REPORT | Continuity of Care Document ---
:1930 External Reference #:[id number] Author Name Vianey Altamirano Care Team Providers Name Role Phone Chris Khan MD Primary Care Physician Unavailable Payers Date Identification Numbers Payment Provider Subscriber Policy Number: [id number] Medicare Sofia Callejas PayID: [id number] [address] [facility] [place] [address] Policy Number: [id number] [facility] Sofia Callejas PayID: [id number] [address] [place] [address] Expires: 2018 Policy Number: [id number] Medicare Sofia Callejas PayID: [id number] [address] [facility] [place] [address] Family History Date Family Member(s) Observation Comments Father due to [place] () - 70's : (age 84 Mother due to Years) Pancreatic Cancer Siblings 2 both 1 valve replacement 82 lung ca 1 bro alzheimers age 84 Social History Type Date Description Comments Sex Unknown Marital Status 02/2017 Lives With Family Occupation [employer] [facility] Occupation Retired ETOH Use Occasionally consumes alcohol Tobacco Use Start: Unknown Patient is a former End: Unknown smoker Recreational Drug Use Denies Drug Use Tobacco Use Start: Unknown Patient is a former quit 1986, 1 pack End: smoker per week 1998 lung removed Smoking Status Reviewed: 02/09/19 Patient is a former quit 1986, 1 pack smoker per week 1998 lung removed Exercise Type/Frequency Does not exercise Allergies, Adverse Reactions, Alerts Description No Known Drug Allergies Medications Active Medications SIG Qnty Indications Ordering Provider Date Nitro-Dur apply 1 patch 30units R06.00 Radha Song, 12/27/2018 0.1mg/HR daily for 12 N.P. Patches 24HR hours and remove at bedtime. Klor-Con M20 1 by mouth every 30tabs Juan Raymond 01/12/2018 20Meq day Kentrell Avila Tablets ER Vitamin D3 1 by mouth every Unknown 1000Unit day Capsules Tylenol 1 tablet by Unknown 325mg Capsules mouth as needed Metoprolol Tartrate 1 tab by mouth 45tabs Juan Raymond twice daily Kentrell Avila 25mg Tablets Oxygen 2 L prn Unknown Iron 1 by mouth twice 60tabs Radha Song, 325(65Fe) mg every day N.P. Tablets Nitrostat one sl q5min up 30tabs Radha Song, 0.4mg Tablets to 3 doses as N.P. Sub needed Ginkgo Biloba Extract prn Unknown 60mg Capsules Biotin prn Unknown Coq-10 1 po qd Unknown Multi Vitamin Daily prn Unknown Tablets Aspir-81 1 by mouth every Unknown 81mg Tablets day Omeprazole 1 by mouth every Unknown 20mg day Capsules DR Donepezil HCL 1 every day Unknown 5mg Tablets Lorazepam one by mouth Unknown 0.5mg Tablets twice a day prn History Medications Cardizem CD 1 by mouth every 90caps Juan Raymond 12/06/2018 - 120mg Caps day Kenrtell Avila 02/08/2019 ER 24HR Torsemide 1 by mouth every 30tabs Juan Raymond 01/12/2018 - 10mg Tablets day as directed by Kentrell Avila 12/26/2018 Dr. Avila Cardizem CD 1 by mouth every 90caps Radha Song, 11/02/2017 - 180mg Caps day (taking in the N.P. 12/05/2018 ER 24HR am) Cardizem CD 1 by mouth every 90caps Radha Song, 10/27/2017 - 120mg Caps day N.P. 11/02/2017 ER 24HR Aldactone 1 by mouth every 90tabs Juan Raymond 07/02/2017 - 25mg Tablets day ( Pt stop Kentrell Avila 11/04/2017 taking ) Klor-Con/Ef 1 by mouth daily 30tabs Juan Raymond 07/02/2017 - 20Meq for 5 days and Kentrell Avila 07/03/2017 Tablets Efferv then as directed. Potassium Chloride 1 by mouth every 90tabs Juan FPrimo 07/02/2017 - Kamini ER other day Kentrell Avila 10/08/2017 20Meq Tablets ER Losartan 1 by mouth every Unknown - Potassium/Hydrochloro day hold as of 08/09/2017 thiazide 10.25.17 50-12.5mg Tablets Verapamil HCL ER 1 by mouth every Unknown - 240mg day 10/07/2017 Tablets ER Bupropion HCL 1 by mouth every Unknown - 75mg day (taking 09/19/2018 Tablets sporadically) Docusate Sodium 1 by mouth twice a Unknown - 100mg day prn 09/19/2018 Capsules Potassium Chloride ER 1 by mouth every Unknown - day 07/04/2017 20Meq Tablets ER Vinpocetine prn Unknown - Powder 06/06/2018 Metoprolol Tartrate 1/2 tab by mouth 180tabs Juan FPrimo - once daily until Kentrell Avila 01/14/2018 25mg Tablets 01/10/18 and then 5.9 and 5.11 and then discotinue. Plavix 1 by mouth every 90tabs Juan FPrimo - 75mg Tablets day Kentrell Aivla 03/06/2018 Vital Signs Date Vital Result Comment 02/09/2019 1:42pm Height 60 inches 5'0" Weight 113.50 lb Clothes/shoes Heart Rate 100 /min Radial BP Systolic Sitting 136 mmHg Rue reg cuff BP Diastolic Sitting 80 mmHg Rue reg cuff O2 % BldC Oximetry 99 % Supp Oxygen 2 LPM aat BMI (Body Mass Index) 22.2 kg/m2 Ejection Fraction 65-70% Echo 10/03/2018 12/27/2018 2:31pm Height 60 inches 5'0" Weight 116.25 lb Clothes/shoes Heart Rate 80 /min Radial BP Systolic Sitting 138 mmHg Rue reg cuff BP Diastolic Sitting 80 mmHg Rue reg cuff O2 % BldC Oximetry 98 % 2 LPM via NC BMI (Body Mass Index) 22.7 kg/m2 Ejection Fraction 65-70% Echo 10/03/2018 09/20/2018 1:14pm Height 60 inches 5'0" Weight 114.38 lb Heart Rate 88 /min BP Systolic Sitting 128 mmHg ule BP Diastolic Sitting 80 mmHg ule BMI (Body Mass Index) 22.3 kg/m2 Ejection Fraction 60-65% Echo 11/02/17 06/07/2018 3:22pm Height 60 inches 5'0" Weight 112.12 lb Heart Rate 72 /min BP Systolic Sitting 142 mmHg LA< reg BP Diastolic Sitting 68 mmHg LA< reg O2 % BldC Oximetry 95 % room air BMI (Body Mass Index) 21.9 kg/m2 Ejection Fraction 60%-65% 01/04/2018 2:20pm Height 60 inches 5'0" Weight 112.00 lb w/ shoes Heart Rate 68 /min reg BP Systolic Sitting 116 mmHg Lue, reg cuff BP Diastolic Sitting 70 mmHg Lue, reg cuff Respiratory Rate 18 /min BMI (Body Mass Index) 21.9 kg/m2 Ejection Fraction 60-65% as of 11/02/17 echo 11/18/2017 1:36pm Height 60 inches 5'0" Weight 108.00 lb with shoes Heart Rate 65 /min BP Systolic Sitting 130 mmHg lue reg cuff BP Diastolic Sitting 60 mmHg lue reg cuff BMI (Body Mass Index) 21.1 kg/m2 Ejection Fraction 60-65% 11/02/2017 echo 11/02/2017 2:00pm Height 60 inches 5'0" Weight 106.00 lb Heart Rate 80 /min BP Systolic Sitting 130 mmHg Rue reg cuff BP Diastolic Sitting 74 mmHg Rue reg cuff BP Systolic Standing 126 mmHg Rue BP Diastolic Standing 86 mmHg Rue Respiratory Rate 16 /min O2 % BldC Oximetry 96 % BMI (Body Mass Index) 20.7 kg/m2 10/08/2017 2:15pm Height 60 inches 5'0" Weight 107.25 lb with shoes Heart Rate 66 /min BP Systolic 150 mmHg L/Arm Reg Cuff BP Diastolic 88 mmHg L/Arm Reg Cuff BP Systolic Sitting 138 mmHg la repeat sitting BP Diastolic Sitting 82 mmHg la repeat sitting BMI (Body Mass Index) 20.9 kg/m2 Ejection Fraction Approx. 5% Echocardiogram 09/20/2017 08/09/2017 3:26pm Height 60 inches 5'0" Weight 111.75 lb with shoes Heart Rate 68 /min BP Systolic Sitting 146 mmHg Ra reg cuff BP Diastolic Sitting 72 mmHg Ra reg cuff BMI (Body Mass Index) 21.8 kg/m2 Ejection Fraction 60%-65% echo 08/05/17 07/05/2017 4:02pm Heart Rate 80 /min 76 home unit BP Systolic 142 mmHg L arm, reg cuff BP Diastolic 82 mmHg L arm, reg cuff BP Systolic Sitting 144 mmHg R arm, reg cuff BP Diastolic Sitting 84 mmHg R arm, reg cuff BP Systolic Standing 148 mmHg R arm, reg cuff BP Diastolic Standing 84 mmHg R arm, reg cuff BP Systolic Lying Down 158 mmHg LA home unit BP Diastolic Lying Down 81 mmHg LA home unit 06/29/2017 1:37pm Height 60 inches 5'0" Weight 112.25 lb with shoes Heart Rate 62 /min BP Systolic Sitting 138 mmHg LA reg cuff BP Diastolic Sitting 76 mmHg LA reg cuff BMI (Body Mass Index) 21.9 kg/m2 Results Test Date Facility Test Result H/L Range Note Comp Metabolic Panel 02/08/2019 [facility] Sodium 140 mmol/L N 135-[address] [place] [address] [phone] Potassium 4.0 mmol/L N 3.5-5.0 Chloride 100 mmol/L Low 101-111 Co2 Carbon Dioxide 32 mmol/L N 22-32 Anion Gap 8 mmol/L N 2-11 Glucose 135 mg/dL High 70-100 Blood Urea Nitrogen 15 mg/dL N 6-24 Creatinine 0.71 mg/dL N 0.51-0.95 BUN/Creatinine Ratio 21.1 High 8-20 Calcium 10.0 mg/dL N 8.6-10.3 Total Protein 6.8 g/dL N 6.4-8.9 Albumin 4.3 g/dL N 3.2-5.2 Globulin 2.5 g/dL N 2-4 Albumin/Globulin Ratio 1.7 N 1-3 Total Bilirubin 1.00 mg/dL N 0.2-1.0 Alkaline Phosphatase 77 U/L N 34-104 Alt 17 U/L N 7-52 Ast 25 U/L N 13-39 Egfr Non- 77.7 >60 Egfr 94.0 >60 1 Laboratory test 02/08/2019 [facility] Magnesium 1.8 mg/dL Low 1.9-2.[address] [place] [address] [phone] CBC Auto Diff 02/08/2019 [facility] White Blood 7.5 N 3.5- 10.[address] Count 10^3/[place] [address] [phone] Red Blood Count 3.62 10^6/uL Low 3.70-4.87 Hemoglobin 11.6 g/dL Low 12.0-16.0 Hematocrit 35 % N 35-47 Mean Corpuscular Volume 98 fL High 80-97 Mean Corpuscular Hemoglobin 32 pg High 27-31 Mean Corpuscular HGB Conc 33 g/dL N 31-36 Red Cell Distribution Width 13 % N 10.5-15 Platelet Count 160 10^3/uL N 150-450 Mean Platelet Volume 9.2 fL N 7.4-10.4 Abs Neutrophils 4.7 10^3/uL N 1.5-7.7 Abs Lymphocytes 0.7 10^3/uL Low 1.0-4.8 Abs Monocytes 2.1 10^3/uL High 0-0.8 Abs Eosinophils 0.0 10^3/uL N 0-0.6 Abs Basophils 0.0 10^3/uL N 0-0.2 Abs Nucleated RBC 0.0 10^3/uL Granulocyte % 62.2 % Lymphocyte % 9.0 % Monocyte % 28.0 % Eosinophil % 0.2 % Basophil % 0.6 % Nucleated Red Blood Cells % 0.1 CBC Auto Diff 09/20/2018 [facility] White Blood 8.8 10^3/uL N 3.5-10.[address] [place] [address] [phone] Red Blood Count 4.47 10^6/uL N 4.00-5.40 Hemoglobin 14.2 g/dL N 12.0-16.0 Hematocrit 43 % N 35-47 Mean Corpuscular Volume 97 fL N 80-97 Mean Corpuscular Hemoglobin 32 pg High 27-31 Mean Corpuscular HGB Conc 33 g/dL N 31-36 Red Cell Distribution Width 13 % N 10.5-15 Platelet Count 223 10^3/uL N 150-450 Mean Platelet Volume 8.0 fL N 7.4-10.4 Abs Neutrophils 5.7 10^3/uL N 1.5-7.7 Abs Lymphocytes 0.9 10^3/uL Low 1.0-4.8 Abs Monocytes 2.1 10^3/uL High 0-0.8 Abs Eosinophils 0 10^3/uL N 0-0.6 Abs Basophils 0 10^3/uL N 0-0.2 Abs Nucleated RBC 0 10^3/uL Granulocyte % 64.8 % Lymphocyte % 10.7 % Monocyte % 24.0 % Eosinophil % 0.1 % Basophil % 0.4 % Nucleated Red Blood Cells % 0 Comp Metabolic Panel 09/20/2018 [facility] Sodium 141 mmol/L N 135-[address] [place] [address] [phone] Potassium 4.1 mmol/L N 3.5-5.0 Chloride 101 mmol/L N 101-111 Co2 Carbon Dioxide 33 mmol/L High 22-32 Anion Gap 7 mmol/L N 2-11 Glucose 134 mg/dL High 70-100 Blood Urea Nitrogen 21 mg/dL N 6-24 Creatinine 0.86 mg/dL N 0.51-0.95 BUN/Creatinine Ratio 24.4 High 8-20 Calcium 10.0 mg/dL N 8.6-10.3 Total Protein 7.1 g/dL N 6.4-8.9 Albumin 4.6 g/dL N 3.2-5.2 Globulin 2.5 g/dL N 2-4 Albumin/Globulin Ratio 1.8 N 1-3 Total Bilirubin 0.60 mg/dL N 0.2-1.0 Alkaline Phosphatase 93 U/L N 34-104 Alt 16 U/L N 7-52 Ast 24 U/L N 13-39 Egfr Non- 62.4 >60 Egfr 75.5 >60 2 Iron & Iron Binding 09/20/2018 [facility] Iron 75 g/dL N 50- [address] [place] [address] [phone] Unsaturated Iron Binding < 339 g/dL Total Iron Binding Capacity 354 g/dL N 250-450 Transferrin 253 mg/dL N 203-362 % Iron Saturation 21 % N 15-55 Laboratory test 09/20/2018 [facility] TSH (Thyroid 2.10 N 0.34 -5.60 [address] Stimulating mcIU/[place] [address] Horm) [phone] Iron & Iron 03/01/2018 [facility] Iron 102 g/dL N 50-[address] [place] [address] [phone] Unsaturated Iron Binding 265 g/dL Total Iron Binding Capacity 367 g/dL N 250-450 Transferrin 262 mg/dL N 203-362 % Iron Saturation 28 % N 15-55 Basic Metabolic Panel 03/01/2018 [facility] Sodium 139 mmol/L N 135-[address] [place] [address] [phone] Potassium 4.5 mmol/L N 3.5-5.0 Chloride 100 mmol/L Low 101-111 Co2 Carbon Dioxide 31 mmol/L N 22-32 Anion Gap 8 mmol/L N 2-11 Glucose 121 mg/dL High 70-100 Blood Urea Nitrogen 16 mg/dL N 6-24 Creatinine 0.83 mg/dL N 0.51-0.95 BUN/Creatinine Ratio 19.3 N 8-20 Calcium 10.0 mg/dL N 8.6-10.3 Egfr Non- 65.0 >60 Egfr 78.7 >60 4 CBC Auto Diff 02/15/2018 [facility] White Blood 7.5 10^3/uL N 3.5-10.[address] [place] [address] [phone] Red Blood Count 4.32 10^6/uL N 4.00-5.40 Hemoglobin 13.5 g/dL N 12.0-16.0 Hematocrit 41 % N 35-47 Mean Corpuscular Volume 95 fL N 80-97 Mean Corpuscular Hemoglobin 31 pg N 27-31 Mean Corpuscular HGB Conc 33 g/dL N 31-36 Red Cell Distribution Width 13 % N 10.5-15 Platelet Count 187 10^3/uL N 150-450 Mean Platelet Volume 8.0 um3 N 7.4-10.4 Abs Neutrophils 4.9 10^3/uL N 1.5-7.7 Abs Lymphocytes 0.7 10^3/uL Low 1.0-4.8 Abs Monocytes 1.8 10^3/uL High 0-0.8 Abs Eosinophils 0 10^3/uL N 0-0.6 Abs Basophils 0 10^3/uL N 0-0.2 Abs Nucleated RBC 0 10^3/uL Granulocyte % 66.0 % N 38-83 Lymphocyte % 9.9 % Low 25-47 Monocyte % 23.6 % High 0-7 Eosinophil % 0.1 % N 0-6 Basophil % 0.4 % N 0-2 Nucleated Red Blood Cells % 0.1 Iron & Iron Binding 02/15/2018 [facility] Iron TNP g/dL 50- 212 5 [address] [place] [address] [phone] Unsaturated Iron Binding TNP g/dL Total Iron Binding Capacity 363 g/dL N 250-450 Transferrin 259 mg/dL N 203-362 % Iron Saturation TNP % 15-55 6 Basic Metabolic Panel 02/15/2018 [facility] Sodium 139 mmol/L N 139-145 [address] [place] [address] [phone] Potassium TNP mmol/L 3.5-5.0 7 Chloride 100 mmol/L Low 101-111 Co2 Carbon Dioxide 30 mmol/L N 22-32 Anion Gap 9 mmol/L N 2-11 Glucose 146 mg/dL High 70-100 Blood Urea Nitrogen 18 mg/dL N 6-24 Creatinine 0.85 mg/dL N 0.51-0.95 BUN/Creatinine Ratio 21.2 High 8-20 Calcium 10.1 mg/dL N 8.6-10.3 Egfr Non- 63.3 >60 Egfr 81.4 >60 8 Laboratory test 02/15/2018 [facility] B-Type 217 pg/mL High [address] [place] [address] Peptide BNP [phone] Troponin-I (TnI) 0.01 ng/mL <0.04 10 TSH (Thyroid Stimulating Horm) 1.92 mcIU/mL N 0.34-5.60 11 Laboratory test 11/04/2017 [facility] Troponin-I (TnI) 0.01 ng/ mL <0.04 [address] [place] [address] [phone] CRP High Sensitivity 23.74 mg/L 13 Erythrocyte Sed Rate 51 mm/Hr High 0-40 14 B-Type Natriuretic Peptide BNP 334 pg/mL High 15 CBC Auto Diff 10/29/2017 [facility] White Blood 8.3 10^3/uL N 3.5-10.[address] [place] [address] [phone] Red Blood Count 3.48 10^6/uL Low 4.0-5.4 Hemoglobin 10.3 g/dL Low 12.0-16.0 Hematocrit 32 % Low 35-47 Mean Corpuscular Volume 93 fL N 80-97 Mean Corpuscular Hemoglobin 30 pg N 27-31 Mean Corpuscular HGB Conc 32 g/dL N 31-36 Red Cell Distribution Width 14 % N 10.5-15 Platelet Count 176 10^3/uL N 150-450 Mean Platelet Volume 9 um3 N 7.4-10.4 Abs Neutrophils 5.1 10^3/uL N 1.5-7.7 Abs Lymphocytes 0.7 10^3/uL Low 1.0-4.8 Abs Monocytes 2.5 10^3/uL High 0-0.8 Abs Eosinophils 0 10^3/uL N 0-0.6 Abs Basophils 0 10^3/uL N 0-0.2 Abs Nucleated RBC 0 10^3/uL Granulocyte % 61.0 % N 38-83 Lymphocyte % 8.9 % Low 25-47 Monocyte % 29.7 % High 0-7 Eosinophil % 0 % N 0-6 Basophil % 0.4 % N 0-2 Nucleated Red Blood Cells % 0.1 Basic Metabolic Panel 10/29/2017 [facility] Sodium 135 mmol/L N 133-[address] [place] [address] [phone] Potassium 4.4 mmol/L N 3.5-5.0 Chloride 102 mmol/L N 101-111 Co2 Carbon Dioxide 25 mmol/L N 22-32 Anion Gap 8 mmol/L N 2-11 Glucose 117 mg/dL High 70-100 Blood Urea Nitrogen 15 mg/dL N 6-24 Creatinine 0.81 mg/dL N 0.51-0.95 BUN/Creatinine Ratio 18.5 N 8-20 Calcium 9.5 mg/dL N 8.6-10.3 Egfr Non- 67.0 >60 Egfr 86.2 >60 16 Laboratory test 10/29/2017 [facility] B-Type 563 pg/mL High 17 finding [address] [place] [address] Peptide BNP [phone] Troponin-I (TnI) 0.33 ng/mL High <0.04 18 Lipid Profile 10/29/2017 [facility] Triglycerides 74 mg/dL 19 (Trig/Chol/HDL) [address] [place], [place] [id number] [phone] Cholesterol 165 mg/dL 20 HDL Cholesterol 41.4 mg/dL 21 LDL Cholesterol 109 mg/dL 22 Vitamin B12 And 10/29/2017 [facility] Vitamin B12 498 pg/mL N 180-914 23 Folate Serum [address] [place] [address] [phone] Folic Acid (Folate) 16.66 ng/mL >3.99 Iron & Iron Binding 10/29/2017 [facility] Iron 32 g/dL Low 50-212 Capacity [address] [place] [address] [phone] Unsaturated Iron Binding 395 g/dL Total Iron Binding Capacity 427 g/dL N 250-450 % Iron Saturation 7 % Low 15-55 Basic Metabolic Panel 07/21/2017 [facility] Sodium 137 mmol/L N 133-145 [address] [place] [address] [phone] Potassium 4.6 mmol/L N 3.5-5.0 Chloride 103 mmol/L N 101-111 Co2 Carbon Dioxide 27 mmol/L N 22-32 Anion Gap 7 mmol/L N 2-11 Glucose 155 mg/dL High 70-100 Blood Urea Nitrogen 22 mg/dL N 6-24 Creatinine 0.96 mg/dL High 0.51-0.95 BUN/Creatinine Ratio 22.9 High 8-20 Calcium 9.6 mg/dL N 8.6-10.3 Egfr Non- 55.1 >60 Egfr 70.9 >60 24 Laboratory test 07/01/2017 [facility] B-Type 255 pg/mL High 25 finding [address] [place] [address] Peptide BNP [phone] CBC Auto Diff 07/01/2017 [facility] White Blood 6.2 N 3.5-[address] Count 10^3/uL 0.8 [place] [address] [phone] Red Blood Count 4.15 10^6/uL N 4.0-5.4 Hemoglobin 12.8 g/dL N 12.0-16.0 Hematocrit 39 % N 35-47 Mean Corpuscular Volume 94 fL N 80-97 Mean Corpuscular Hemoglobin 31 pg N 27-31 Mean Corpuscular HGB Conc 33 g/dL N 31-36 Red Cell Distribution Width 14 % N 10.5-15 Platelet Count 185 10^3/uL N 150-450 Mean Platelet Volume 8 um3 N 7.4-10.4 Abs Neutrophils 3.8 10^3/uL N 1.5-7.7 Abs Lymphocytes 0.8 10^3/uL Low 1.0-4.8 Abs Monocytes 1.5 10^3/uL High 0-0.8 Abs Eosinophils 0 10^3/uL N 0-0.6 Abs Basophils 0.1 10^3/uL N 0-0.2 Abs Nucleated RBC 0 10^3/uL N Granulocyte % 61.9 % N 38-83 Lymphocyte % 12.1 % Low 25-47 Monocyte % 24.5 % High 1-9 Eosinophil % 0.1 % N 0-6 Basophil % 1.4 % N 0-2 Nucleated Red Blood Cells % 0 N Lipid Profile 07/01/2017 [facility] Triglycerides 77 mg/dL N 26 (Trig/Chol/HDL) [address] [place] [address] [phone] Cholesterol 158 mg/dL N 27 HDL Cholesterol 50.3 mg/dL N 28 LDL Cholesterol 92 mg/dL N 29 Comp Metabolic Panel 07/01/2017 [facility] Sodium 140 mmol/L N 133-[address] [place] [address] [phone] Potassium 3.3 mmol/L Low 3.5-5.0 Chloride 101 mmol/L N 101-111 Co2 Carbon Dioxide 30 mmol/L N 22-32 Anion Gap 9 mmol/L N 2-11 Glucose 148 mg/dL High 70-100 Blood Urea Nitrogen 21 mg/dL N 6-24 Creatinine 0.92 mg/dL N 0.51-0.95 BUN/Creatinine Ratio 22.8 High 8-20 Calcium 9.6 mg/dL N 8.6-10.3 Total Protein 7.1 g/dL N 6.4-8.9 Albumin 4.0 g/dL N 3.2-5.2 Globulin 3.1 g/dL N 2-4 Albumin/Globulin Ratio 1.3 N 1-3 Total Bilirubin 0.70 mg/dL N 0.2-1.0 Alkaline Phosphatase 73 U/L N 34-104 Alt 11 U/L N 7-52 Ast 16 U/L N 13-39 Egfr Non- 57.9 N >60 Egfr 74.4 N >60 30 Lipid Panel - 07/01/2017 [facility] Creatine Kinase(CK) 23 U/L N 10-[address] [address] [phone] 1 Because ethnic data is not always readily available, this report includes an eGFR for both -Americans and non- Americans. The National Kidney Disease Education Program (NKDEP) does not endorse the use of the MDRD equation for patients that are not between the ages of 18 and 70, are , have extremes of body size, muscle mass, or nutritional status, or are non- or non-. According to the National Kidney Foundation, irrespective of diagnosis, the stage of the disease is based on the level of kidney function: Stage Description GFR(mL/min/1.73 m(2)) 1 Kidney damage with normal or decreased GFR 90 2 Kidney damage with mild decrease in GFR 60-89 3 Moderate decrease in GFR 30-59 4 Severe decrease in GFR 15-29 5 Kidney failure <15 (or dialysis) 2 Because ethnic data is not always readily available, this report includes an eGFR for both -Americans and non- Americans. The National Kidney Disease Education Program (NKDEP) does not endorse the use of the MDRD equation for patients that are not between the ages of 18 and 70, are , have extremes of body size, muscle mass, or nutritional status, or are non- or non-. According to the National Kidney Foundation, irrespective of diagnosis, the stage of the disease is based on the level of kidney function: Stage Description GFR(mL/min/1.73 m(2)) 1 Kidney damage with normal or decreased GFR 90 2 Kidney damage with mild decrease in GFR 60-89 3 Moderate decrease in GFR 30-59 4 Severe decrease in GFR 15-29 5 Kidney failure <15 (or dialysis) 3 Copy Result to: CHRIS KHAN ([id number]) 4 Because ethnic data is not always readily available, this report includes an eGFR for both -Americans and non- Americans. The National Kidney Disease Education Program (NKDEP) does not endorse the use of the MDRD equation for patients that are not between the ages of 18 and 70, are , have extremes of body size, muscle mass, or nutritional status, or are non- or non-. According to the National Kidney Foundation, irrespective of diagnosis, the stage of the disease is based on the level of kidney function: Stage Description GFR(mL/min/1.73 m(2)) 1 Kidney damage with normal or decreased GFR 90 2 Kidney damage with mild decrease in GFR 60-89 3 Moderate decrease in GFR 30-59 4 Severe decrease in GFR 15-29 5 Kidney failure <15 (or dialysis) 5 Unable to report test result due to hemolysis. 6 Unable to calculate due to hemolysis. 7 Specimen Hemolyzed. Result may not be valid. Unable to report test result due to hemolysis. 8 Because ethnic data is not always readily available, this report includes an eGFR for both -Americans and non- Americans. The National Kidney Disease Education Program (NKDEP) does not endorse the use of the MDRD equation for patients that are not between the ages of 18 and 70, are , have extremes of body size, muscle mass, or nutritional status, or are non- or non-. According to the National Kidney Foundation, irrespective of diagnosis, the stage of the disease is based on the level of kidney function: Stage Description GFR(mL/min/1.73 m(2)) 1 Kidney damage with normal or decreased GFR 90 2 Kidney damage with mild decrease in GFR 60-89 3 Moderate decrease in GFR 30-59 4 Severe decrease in GFR 15-29 5 Kidney failure <15 (or dialysis) 9 >100 to <200 pg/mL: likely compensated congestive heart failure (CHF) 200 to 400 pg/mL: likely moderate CHF >400 pg/mL: likely moderate to severe CHF 10 Verbal to [id number] by [email or web address] at 1533 on 02/15/18. 11 Verbal to [id number] by [email or web address] at 1533 on 02/15/18. 12 [id number] 13 Low risk: <1.00 Average risk: 1.00-3.00 High risk: >3.00 14 [id number] 15 >100 to <200 pg/mL: likely compensated congestive heart failure (CHF) 200 to 400 pg/mL: likely moderate CHF >400 pg/mL: likely moderate to severe CHF 16 Because ethnic data is not always readily available, this report includes an eGFR for both -Americans and non- Americans. The National Kidney Disease Education Program (NKDEP) does not endorse the use of the MDRD equation for patients that are not between the ages of 18 and 70, are , have extremes of body size, muscle mass, or nutritional status, or are non- or non-. According to the National Kidney Foundation, irrespective of diagnosis, the stage of the disease is based on the level of kidney function: Stage Description GFR(mL/min/1.73 m(2)) 1 Kidney damage with normal or decreased GFR 90 2 Kidney damage with mild decrease in GFR 60-89 3 Moderate decrease in GFR 30-59 4 Severe decrease in GFR 15-29 5 Kidney failure <15 (or dialysis) 17 >100 to <200 pg/mL: likely compensated congestive heart failure (CHF) 200 to 400 pg/mL: likely moderate CHF >400 pg/mL: likely moderate to severe CHF 18 Verbal to [id number] by [email or web address] at 1336 on 10/29/17. Results read back accurately. 19 Desirable: <150 Borderline High: 150-199 High: 200-499 Very High: >500 20 Desirable: <200 Borderline High: 200-239 High: >239 21 Low: <40 Desirable: 40-60 High: >60 22 Desirable: <100 Near Optimal: 100-129 Borderline High: 130-159 High: 160-189 Very High: >189 23 Normal Range 180 to 914 Indeterminate Range 145 to 180 Deficient Range <145 24 Because ethnic data is not always readily available, this report includes an eGFR for both -Americans and non- Americans. The National Kidney Disease Education Program (NKDEP) does not endorse the use of the MDRD equation for patients that are not between the ages of 18 and 70, are , have extremes of body size, muscle mass, or nutritional status, or are non- or non-. According to the National Kidney Foundation, irrespective of diagnosis, the stage of the disease is based on the level of kidney function: Stage Description GFR(mL/min/1.73 m(2)) 1 Kidney damage with normal or decreased GFR 90 2 Kidney damage with mild decrease in GFR 60-89 3 Moderate decrease in GFR 30-59 4 Severe decrease in GFR 15-29 5 Kidney failure <15 (or dialysis) 25 >100 to <200 pg/mL: likely compensated congestive heart failure (CHF) 200 to 400 pg/mL: likely moderate CHF >400 pg/mL: likely moderate to severe CHF 26 Desirable: <150 Borderline High: 150-199 High: 200-499 Very High: >500 27 Desirable: <200 Borderline High: 200-239 High: >239 28 Low: <40 Desirable: 40-60 High: >60 29 Desirable: <100 Near Optimal: 100-129 Borderline High: 130-159 High: 160-189 Very High: >189 30 Because ethnic data is not always readily available, this report includes an eGFR for both -Americans and non- Americans. The National Kidney Disease Education Program (NKDEP) does not endorse the use of the MDRD equation for patients that are not between the ages of 18 and 70, are , have extremes of body size, muscle mass, or nutritional status, or are non- or non-. According to the National Kidney Foundation, irrespective of diagnosis, the stage of the disease is based on the level of kidney function: Stage Description GFR(mL/min/1.73 m(2)) 1 Kidney damage with normal or decreased GFR 90 2 Kidney damage with mild decrease in GFR 60-89 3 Moderate decrease in GFR 30-59 4 Severe decrease in GFR 15-29 5 Kidney failure <15 (or dialysis) Procedures Date Code Description Status 12/31/2018 79944 Implantable Cardio System Loop Recorder Sys Remota Data Completed Acquistio 12/31/2018 47963 Interrogation Dev Loop Recorder Incl Physician Completed Analysis,Rev,Repor 12/27/2018 84843 EKG Tracing & Interpretation Completed 11/30/2018 75504 Implantable Cardio System Loop Recorder Sys Remota Data Completed Acquistio 11/30/2018 87285 Interrogation Dev Loop Recorder Incl Physician Completed Analysis,Rev,Repor 10/30/2018 [id number] Implantable Cardio System Loop Recorder Sys Remota Data Completed Acquistio 10/30/2018 37617 Interrogation Dev Loop Recorder Incl Physician Completed Analysis,Rev,Repor 10/03/2018 62255 ECHO Transthoracic, Real-Time 2D With Doppler And Color Completed Flow 10/03/2018 19898 ECHO Transthoracic, Real-Time 2D With Doppler And Color Completed Flow 09/29/2018 42616 Implantable Cardio System Loop Recorder Sys Remota Data Completed Acquistio 09/29/2018 69834 Interrogation Dev Loop Recorder Incl Physician Completed Analysis,Rev,Repor 09/20/2018 [id number] EKG Tracing & Interpretation Completed 08/29/2018 45155 Interrogation Dev Loop Recorder Incl Physician Completed Analysis,Rev,Repor 08/29/2018 20444 Implantable Cardio System Loop Recorder Sys Remota Data Completed [facility]io 07/29/2018 99150 Implantable Cardio System Loop Recorder Sys Remota Data Completed Acquistio 07/29/2018 94695 Interrogation Dev Loop Recorder Incl Physician Completed Analysis,Rev,Repor 06/28/2018 [id number] Implantable Cardio System Loop Recorder Sys Remota Data Completed Acquistio 06/28/2018 65174 Interrogation Dev Loop Recorder Incl Physician Completed Analysis,Rev,Repor 06/07/2018 19963 EKG Tracing & Interpretation Completed 05/28/2018 12298 Implantable Cardio System Loop Recorder Sys Remota Data Completed [facility] 05/28/2018 11464 Interrogation Dev Loop Recorder Incl Physician Completed Analysis,Rev,Repor 04/27/2018 47531 Implantable Cardio System Loop Recorder Sys Remota Data Completed Acquistio 04/27/2018 09346 Interrogation Dev Loop Recorder Incl Physician Completed Analysis,Rev,Repor 03/27/2018 78348 Interrogation Dev Loop Recorder Incl Physician Completed Analysis,Rev,Repor 03/27/2018 32958 Implantable Cardio System Loop Recorder Sys Remota Data Completed [facility] 03/25/2018 15226 Interrogation Device Eval,Implantable Loop Recorder System Completed 03/25/2018 06696 Interrogation Device Eval,Implantable Loop Recorder System Completed 02/24/2018 30127 Implantable Cardio System Loop Recorder Sys Remota Data Completed [facility] 02/24/2018 93691 Interrogation Dev Loop Recorder Incl Physician Completed Analysis,Rev,Repor 01/24/2018 68431 Implantable Cardio System Loop Recorder Sys Remota Data Completed [facility] 01/24/2018 32267 Interrogation Dev Loop Recorder Incl Physician Completed Analysis,Rev,Repor 01/04/2018 63592 EKG Tracing & Interpretation Completed 12/24/2017 51413 Implantable Cardio System Loop Recorder Sys Remota Data Completed [facility] 12/24/2017 53764 Interrogation Dev Loop Recorder Incl Physician Completed Analysis,Rev,Repor 11/23/2017 33245 Interrogation Dev Loop Recorder Incl Physician Completed Analysis,Rev,Repor 11/23/2017 72963 Implantable Cardio System Loop Recorder Sys Remota Data Completed [facility] 11/08/2017 84225 Interrogation Device Eval,Implantable Loop Recorder System Completed 11/08/2017 13188 Interrogation Device Eval,Implantable Loop Recorder System Completed 11/02/2017 53389 ECHO Transthoracic, Real-Time 2D With Doppler And Color Completed Flow 11/02/2017 36280 ECHO Transthoracic, Real-Time 2D With Doppler And Color Completed Flow 11/02/2017 00981 EKG Tracing & Interpretation Completed 10/08/2017 56855 EKG Tracing & Interpretation Completed 08/05/2017 17700 ECHO Transthoracic, Real-Time 2D With Doppler And Color Completed Flow 07/23/2017 63032 Treadmill Interp/Report Only Completed 07/23/2017 59093 Stress Test Supervsn W/Out I/R Completed 06/29/2017 04695 EKG Tracing & Interpretation Completed Encounters Type Date Location Provider Dx Diagnosis Office Visit 02/01/2019 [facility] Cristina Flaherty, I44.2 Atrioventricular block, 9:00a Of School Admissions Representative AT [facility] [place] complete I46.9 Cardiac arrest, cause unspecified Z95.2 Presence of prosthetic heart valve Office Visit 12/27/2018 Jean LipscombPrimo I44.2 Atrioventricular 2:30p [facility] Duncan, N.P. block, complete Z95.818 Presence of other cardiac implants and grafts Z95.2 Presence of prosthetic heart valve I48.0 Paroxysmal atrial fibrillation I47.1 Supraventricular tachycardia R06.00 Dyspnea, unspecified Office Visit 09/20/2018 [facility] Juan Raymond I44.2 Atrioventricular 1:20p [facility] [place] Avila block, complete Z95.818 Presence of other cardiac implants and grafts I48.0 Paroxysmal atrial fibrillation I47.1 Supraventricular tachycardia Z95.2 Presence of prosthetic heart valve Office Visit 06/07/2018 3:00p [facility] Juan Raymond R06.00 Dyspnea, [place] Avila unspecified I48.0 Paroxysmal atrial fibrillation I47.1 Supraventricular tachycardia Z95.2 Presence of prosthetic heart valve Office Visit 01/04/2018 2:40p [facility] Juan Raymond R06.02 Shortness of [place] Avila breath R53.83 Other fatigue R07.9 Chest pain, unspecified I47.1 Supraventricular tachycardia I45.2 Bifascicular block I44.2 Atrioventricular block, 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 Office Visit 10/08/2017 2:20p [facility] Juan Raymond I35.0 Nonrheumatic [place] Avila aortic (valve) stenosis Z95.2 Presence of prosthetic heart valve I10 Essential (primary) hypertension R06.02 Shortness of breath Office Visit 09/17/2017 11:15a [facility] Leena R06.03 Acute respiratory Assoc,pc Sebastien Carrillo distress Hospitalists Z95.2 Presence of prosthetic heart valve Office Visit 08/09/2017 3:30p [facility] Stacey Wallace, I35.0 Nonrheumatic aortic PA (valve) stenosis I10 Essential (primary) hypertension R06.02 Shortness of breath Office Visit 07/05/2017 3:30p [facility] Nurse Visit cc I10 Essential (primary) hypertension Office Visit 06/29/2017 2:00p [facility] Juan Raymond I10 Essential (primary) [place] Avila hypertension I35.0 Nonrheumatic aortic (valve) stenosis R07.9 Chest pain, unspecified R06.02 Shortness of breath I45.10 Unspecified right bundle-branch block R94.31 Abnormal electrocardiogram [ECG] [EKG] R00.1 Bradycardia, unspecified Plan of Treatment Future Appointment(s):03/07/2019 2:00 pm - Radha Song, N.P. at [facility]02/09/2019 - Radha Song N.P.I44.2 Atrioventricular block, obfhobxbB03.2 Presence of prosthetic heart vaydtB08.10 Unspecified right bundle- branch lympkL93.1 Supraventricular tachycardiaRecommendations:Continue Metoprolol 25mg twice ceivlH38.02 HypoxemiaFollow up:PO/OV Radhabryce Kulkarni 3 weeks ( or if Mauser there)Recommendations:Recommend spirometry 10x/hr
--- NOTE | 2019-02-14 22:23 | ED ---
GI/ HPI - HPI Summary HPI Summary: 89 year old F brought in by [facility] to [facility] accompanied by daughter with a chief complaint of rectal bleeding since yesterday. The patient rates the pain 0/10 in severity. Symptoms aggravated by nothing. Symptoms alleviated by nothing. Patient denies dizziness and loss of consciousness. Patient takes baby aspirin. Patient has hx hemorrhoids per daughter. - History of Current Complaint Chief Complaint: EDGIBleed Time Seen by Provider: 02/14/19 22:14 Stated Complaint: RECTAL BLEED PER EMS Hx Obtained From: Patient, Family/Dicer Operator - daughter Onset/Duration: Started Days Ago - 1, Still Present Timing: Constant Current Severity: None Pain Intensity: 0 Associated Signs and Symptoms: Positive: Negative - dizziness, LOC Aggravating Factor(s): Nothing Alleviating Factor(s): Nothing - Additional Pertinent History Primary Care Physician: JOHNNIE - Allergy/Home Medications Allergies/Adverse Reactions: Allergies Allergy/AdvReac Type Severity Reaction Status Date / Time No Known Allergies Allergy Verified 02/14/19 22:05 Home Medications: Home Medications Nitroglycerin 0.1 mg/Hr PATCH* [Nitroglycerin 2.5 MG PATCH*] 1 patch TRANSDERM DAILY 02/14/19 [History Confirmed 02/14/19] dilTIAZem HCl [Cardizem 120 MG TAB] 120 mg PO DAILY 02/14/19 [History Confirmed 02/14/19] PMH/Surg Hx/FS Hx/Imm Hx Previously Healthy: No Endocrine/Hematology History: Denies: Hx Diabetes Cardiovascular History: Reports: Hx Angina, Hx Coronary Artery Disease, Hx Hypercholesterolemia, Hx Hypertension, Hx Pacemaker/ICD, Hx Valvular Heart Disease - aortic stenosis Denies: Hx Myocardial Infarction Respiratory History: Reports: Hx Lung Cancer, Other Respiratory Problems/ Disorders - RT LUNG CA Denies: Hx Asthma, Hx Chronic Obstructive Pulmonary Disease (COPD) History: Denies: Hx Chronic Renal Failure Sensory History: Denies: Hx Cataracts, Hx Contacts or Glasses, Hx Eye Injury, Hx Eye Prosthesis, Hx Glaucoma, Hx Legally Blind, Hx Macular Degeneration, Hx Vision Problem, Hx Deafness, Hx Hearing Aid, Hx Hearing Problem Opthamlomology History: Denies: Hx Cataracts, Hx Contacts or Glasses, Hx Eye Injury, Hx Eye Prosthesis, Hx Glaucoma, Hx Legally Blind, Hx Macular Degeneration, Hx Vision Problem - Cancer History Cancer Type, Location and Year: lung - Surgical History Surgery Procedure, Year, and Place: Pneumonectomy, TAVR (2018, [place]) Infectious Disease History: No Infectious Disease History: Denies: Hx Shingles, Hx Tuberculosis, Traveled Outside the [place] in Last 30 Days - Family History Known Family History: Positive: Hypertension - Social History Alcohol Use: Rare Hx Substance Use: Yes Substance Use Comment - Amount & Last Used: perscribed Lorazepam Hx Tobacco Use: Yes Smoking Status (MU): Former Smoker Have You Smoked in the Last Year: No Review of Systems Positive: Other - Rectal bleeding Neurological: Negative - Dizziness, LOC All Other Systems Reviewed And Are Negative: Yes Physical Exam - Summary Physical Exam Summary: VITAL SIGNS: Reviewed. GENERAL: Patient is a well-developed and nourished FEMALE who is lying comfortable in the stretcher. Patient is not in any acute respiratory distress. HEAD AND FACE: No signs of trauma. No ecchymosis, hematomas or skull depressions. No sinus tenderness. EYES: PERRLA, EOMI x 2, No injected conjunctiva, no nystagmus. EARS: Hearing grossly intact. Ear canals and tympanic membranes are within normal limits. MOUTH: Oropharynx within normal limits. NECK: Supple, trachea is midline, no adenopathy, no JVD, no carotid bruit, no c- spine tenderness, neck with full ROM CHEST: Symmetric, no tenderness at palpation LUNGS: Clear to auscultation bilaterally. No wheezing or crackles. CVS: Regular rhythm and tachycardic, S1 and S2 present, no murmurs or gallops appreciated. ABDOMEN: Soft, non-tender. No signs of distention. No rebound no guarding, and no masses palpated. Bowel sounds are normal. EXTREMITIES: FROM in all major joints, no edema, no cyanosis or clubbing. NEURO: Alert and oriented x 3. No acute neurological deficits. Speech is normal and follows commands. SKIN: Dry and warm Rectal exam chaperoned by shey Genao: She has extensive bleeding/internal hemorrhoids. Triage Information Reviewed: Yes Vital Signs On Initial Exam: Initial Vitals Temp Pulse Resp BP Pulse Ox 98.3 F 123 18 153/78 97 02/14/19 21:56 02/14/19 21:56 02/14/19 21:56 02/14/19 21:56 02/14/19 21:56 Vital Signs Reviewed: Yes Diagnostics - Vital Signs Vital Signs Temp Pulse Resp BP Pulse Ox 02/14/19 21:56 98.3 F 123 18 153/78 97 - Laboratory Result Diagrams: 02/14/19 22:58 02/14/19 22:58 Lab Statement: Any lab studies that have been ordered have been reviewed, and results considered in the medical decision making process. - EKG 2239 Cardiac Rate: Tachycardia - 111 BPM EKG Rhythm: Sinus Tachycardia Summary of EKG Findings: Sinus tachycardia 111 BPM. Incomplete RBBB. GIGU Course/Dx - Course Course Of Treatment: 89 year old F brought in by [facility] to [facility] accompanied by daughter with a chief complaint of rectal bleeding since yesterday. Patient has hx hemorrhoids per daughter. Physical Exam shows patient has extensive bleeding/internal hemorrhoids and is tachycardic. Lab results show RBC 3.19, Hgb 10.2, Hct 31, MCV 99, MCH 32, absolute lymphs (auto) 0.6, absolute monos (auto) 3.3, INR 1.44, carbon diozide 35, BUN/creatinine ratio 25.4, glucose 204, and total protein 6.0. EKG results: Sinus tachycardia 111 BPM. Incomplete RBBB. In ED course, patient was given IV fluids. Spoke with Dr. Hanks, hospitalist, who agrees to admit patient. Patient will be admitted to hospitalist. The patient is agreeable to this plan. - Diagnoses Provider Diagnoses: Lower GI bleed, Hemorrhoids - Physician Notifications Discussed Care Of Patient With: Davina Hanks Time Discussed With Above Provider: 23:30 Instructed by Provider To: Other - Dr. Hanks, hospitalist, agrees to admit patient. Discharge - Sign-Out/Discharge Documenting (check all that apply): Patient Departure - Admit Patient Received Moderate/Deep Sedation with Procedure: No - Discharge Plan Condition: Stable Disposition: ADMITTED TO [facility] - Attestation Statements Document Initiated by Scribe: Yes Documenting Scribe: Cecilia Espino Provider For Whom Scribe is Documenting (Include Credential): Linsey Boswell MD Scribe Attestation: Cecilia Veras, scribed for Linsey Boswell MD on 02/15/19 at 0450. Status of Scribe Document: Ready
[2019-02-14] MEDS ORDERED: NS 0.9% 1000 ML** 1,000 ML IV ONE (22:35)
[2019-02-14 23:05] LABS: Hematocrit 31 % (35-47); Hemoglobin 10.2 g/dL (12.0-16.0); Mean Corpuscular HGB Conc 32 g/dL (31-36); Mean Corpuscular Hemoglobin 32 pg (27-31); Mean Corpuscular Volume 99 fL (80-97); Mean Platelet Volume 8.4 fL (7.4-10.4); Platelet Count 201 10^3/uL (150-450); Red Blood Count 3.19 10^6 /uL (3.70-4.87); Red Cell Distribution Width 13 % (10-15); White Blood Count 9.9 10^3/uL (3.5-10.8)
[2019-02-14 23:12] LABS: ABS Basophils 0.1 10^3/ul (0-0.2); ABS Lymphocytes 0.6 10^3/ul (1.0-4.8); ABS Monocytes 3.3 10^3/ul (0-0.8); ABS Neutrophils 5.9 10^3/ul (1.5-7.7); Activated Partial Thrombo Time 36.3 seconds (26.0-38.0); Eosinophil % 0.2 %; INR 1.44 (0.82-1.09); Lymphocyte % 6.6 %
[2019-02-14 23:20] LABS: Albumin 3.6 g/dL (3.2-5.2); Albumin/Globulin Ratio 1.5 (1-3); BUN/Creatinine Ratio 25.4 (8-20); Calcium 9.2 mg/dL (8.6-10.3); EGFR African American 100.5 (>60); EGFR Non-African American 83.1 (>60); Globulin 2.4 g/dL (2-4); Potassium 4.3 mmol/L (3.5-5.0); Total Bilirubin 0.6 mg/dL (0.2-1.0)
[2019-02-15] MEDS ORDERED: Hydrocortisone SUPP* 25 MG SUPP (2.5%) PR ONE (00:03)
[2019-02-15] MEDS ORDERED: Hemorrhoidal OINT PR PRN (00:04)
[2019-02-15] MEDS ORDERED: Acetaminophen TAB* 325 MG PO PRN (00:06)
[2019-02-15] MEDS ORDERED: Al Hydrox/Mg Hydrox/Simet LIQ* 30 ML UDC PO PRN (00:06)
[2019-02-15] MEDS ORDERED: Ondansetron INJ* 2 MG/ML VIAL IV PRN (00:06)
[2019-02-15] MEDS ORDERED: LORazepam TAB(*) 0.5 MG PO PRN (00:09)
--- NOTE | 2019-02-15 02:49 | HP ---
CC: Tanika Khan MD; Juan Avila MD * HISTORY AND PHYSICAL: DATE OF ADMISSION: 02/15/19 TIME OF EVALUATION: 0000. PRIMARY CARE PHYSICIAN: Tanika Khan MD SUPERVISOR PAINTING DEPARTMENT: Juan Avila MD CHIEF COMPLAINT: Rectal bleeding. HISTORY OF PRESENT ILLNESS: This is an 89-year-old female with a past medical history of heart block who had a recent pacemaker placed a week and a half ago, who appears to have a 1 to 2 day history of rectal bleeding. The daughter first was made aware of it today when the patient states was concerned about the amount of blood in the toilet bowl. The daughter evaluated her and she states that there was so much blood that looked like it was her period. She called the EMS for further evaluation. The patient states she thinks she had some rectal bleeding yesterday. She states she had a normal bowel movement yesterday and then has had more episodes today. No lightheadedness, no dizziness , no chest pain. She is always short of breath, wearing oxygen all the time. She did have a pacemaker placed about a week and a half ago and has had a productive cough since then. Recent chest x-ray done before that was negative and they have been trying to use a spirometer often. The daughter states the patient gets very concerned when she has soft stools and wants to take Imodium all the time. She only can really tolerate a half tablet, otherwise she gets severely constipated. The daughter was away for the past few days and she thinks the aide gave her a full tablet and she had issues having bowel movement after that. The patient had a colonoscopy more than 10 years ago and has never had an abnormal colonoscopy. She denies any abdominal pain. No rectal pain. No pain with having a bowel movement. Otherwise, remaining review of systems is negative. In the emergency room, the patient had labs. She was given 1 L of fluid and referred to the hospitalist service for further evaluation. PAST MEDICAL HISTORY: 1. Mild dementia. 2. History of detached retina, blind in her left eye. 3. History of tonsillectomy. 4. History of appendectomy. 5. Hysterectomy. 6. Left knee arthroscopy. 7. History of cholecystectomy. 8. History of squamous cell lung carcinoma, status post right pneumonectomy. 9. History of a right hip fracture. 10. Does have a history of GI bleed in 2012. 11. History of aortic stenosis, status post TAVR in September 2017. 12. Dementia. 13. GERD. MEDICATIONS: 1. Aspirin 81 mg p.o. daily. 2. Omeprazole 20 mg daily. 3. Metoprolol tartrate 25 mg p.o. b.i.d. 4. Nitro patch 0.1 mg per hour for 12 hours. 5. Donepezil 5 mg daily. 6. Lorazepam 0.5 mg b.i.d. as needed. 7. Nitrostat sublingual as needed. 8. Iron 325 mg b.i.d. 9. Potassium 20 mEq daily. 10. Cartia XL 120 mg daily, just started on 02/14/19. 11. Oxygen as needed, but recently has been more continuous. 12. Tylenol as needed. 13. Multivitamin. 14. Ginkgo biloba 60 mg. 15. Biotin 1000 mg. 16. Coenzyme Q 100 mg. ALLERGIES: No known drug allergies. FAMILY HISTORY: Reviewed and noncontributory. SOCIAL HISTORY: The patient lives with her daughter, Hayley. Who is her healthcare proxy. She ambulates with a walker. She does have someone with her 24x7 including aides and her family. Quit smoking 30 years ago, but smoked a pack at least for 12 years. Rare alcohol use. She is a DNR/DNI. She does have a MOLST form with her. REVIEW OF SYSTEMS: A 14-point review of systems as mentioned in the HPI, otherwise negative. PHYSICAL EXAMINATION GENERAL: No acute distress, resting comfortably with her daughter at the bedside. VITAL SIGNS: Temp 98.3, pulse rate is 100, respiratory rate 18, oxygen saturation 97% on 3 L, blood pressure 153/78. HEENT: Head normocephalic. Pupils, left pupil is nonreactive, right pupil is reactive. Anicteric. Oropharynx: Mucous membranes are moist. NECK: Supple. No lymphadenopathy. RESPIRATORY: Diminished breath sounds. No wheezes, rhonchi, or rales. Noted to have a upper coarse cough. CARDIAC: Tachycardia. Soft systolic murmur heard throughout. ABDOMEN: Soft, nontender, nondistended. EXTREMITIES: No clubbing, cyanosis, or edema. +1 DPs. : The patient with external hemorrhoids and dried blood around the hemorrhoids. NEUROLOGIC: Alert and oriented x3. No gross focal neurologic deficits. DIAGNOSTIC STUDIES/LAB DATA: White count 9.9, hemoglobin 10.2, hematocrit 31, platelets 201. INR is 1.44. Sodium 140, potassium 4.3, chloride 103, bicarb 35 , BUN 17, creatinine 0.67, glucose 204. EKG shows sinus tachycardia with incomplete right bundle and left anterior fascicular block. ASSESSMENT AND PLAN: This is an 89-year-old female who recently underwent a pacemaker placement, on a baby aspirin, who presents with 2 days of rectal bleeding. 1. Rectal bleeding. Assessment: The patient with a mild drop in her hemoglobin and hematocrit compared to 02/08/19. She has had H and H of this level back in October of last year. I suspect this is combination of internal and external hemorrhoids, could also be a diverticular bleed, but in the setting of recent constipation and the appearance of external hemorrhoids, I suspect this is the source. Plan: We will keep on clear liquids overnight. We will start her on Anusol suppository and hemorrhoidal ointment and repeat her H and H in the morning. We will hold her aspirin as well. It was mentioned in the emergency room she may be a candidate for surgery for her hemorrhoids. I do not think they are large enough for this to be indicated, but if she continues to have issues, consider followup with GI or Surgery. 2. Chronic medical problems. We will resume her home medications as prescribed. 3. FEN: Clear liquid diet. 4. DVT prophylaxis: The patient scores high risk, concerned with GI bleeding, we will place her on SCDs. 5. Code status: Confirmed she is a DNR/DNI. PATIENT TIME: Greater than 40 minutes was spent doing the history and physical , more than half that time spent in direct patient contact. [id number]/CPS #: [id number] JACKIE
[2019-02-15 06:45] LABS: Hematocrit 29 % (35-47); Hemoglobin 9.8 g/dL (12.0-16.0); Mean Corpuscular HGB Conc 33 g/dL (31-36); Mean Corpuscular Hemoglobin 33 pg (27-31); Mean Corpuscular Volume 98 fL (80-97); Mean Platelet Volume 8.3 fL (7.4-10.4); Platelet Count 206 10^3/uL (150-450); Red Blood Count 3.01 10^6 /uL (3.70-4.87); Red Cell Distribution Width 13 % (10-15)
[2019-02-15 07:04] LABS: Calcium 8.8 mg/dL (8.6-10.3); EGFR Non-African American 92.6 (>60); Potassium 4.1 mmol/L (3.5-5.0)
[2019-02-15 07:48] LABS: ABS Basophils 0.1 10^3/ul (0-0.2); ABS Lymphocytes 1.1 10^3/ul (1.0-4.8); ABS Monocytes 3.1 10^3/ul (0-0.8); ABS Neutrophils 5.7 10^3/ul (1.5-7.7); Eosinophil % 0.2 %; Nucleated Red Blood Cells % 0.1
[2019-02-15 08:25] VITALS: BP 143/88
[2019-02-15] MEDS ORDERED: Metoprolol Tartrate TAB* 25 MG PO SCH (09:00)
[2019-02-15] MEDS ORDERED: Pantoprazole TAB * 40 MG TAB PO SCH (09:00)
[2019-02-15] MEDS ORDERED: Hydrocortisone SUPP* 25 MG SUPP (2.5%) PR SCH (09:00)
[2019-02-15] MEDS ORDERED: Diltiazem CD CAP* 120 MG PO SCH (09:00)
[2019-02-15] MEDS ORDERED: Coenzyme Q10 (NF) ** ENTER STREGNTH IN LABEL DIRECTIONS PO SCH (09:00)
[2019-02-15] MEDS ORDERED: Ferrous Sulfate TAB* 325 MG PO SCH (09:00)
[2019-02-15] MEDS ORDERED: Multivitamins/Minerals TAB PO SCH (09:00)
[2019-02-15] MEDS ORDERED: Potassium Chlor TAB* 20 MEQ TAB.ER PO SCH (09:00)
[2019-02-15] MEDS ORDERED: Nitroglycerin 0.1 mg/Hr PATCH* (2.5 MG) TRANSDERM SCH ×2 (09:00→21:00)
[2019-02-15] MEDS ORDERED: Phytonadione Oral Solution* 5 MG/25 ML UDC PO ONE (12:00)
[2019-02-15] MEDS ORDERED: Donepezil TAB* 5 MG PO SCH (21:00)
[2019-02-16] MEDS ORDERED: Nitro Patch/OINT Remove PATCH OFF SCH (09:00)
--- NOTE | 2019-02-16 11:20 | DS ---
CC: Tanika Khan MD; Dr. Saini DISCHARGE SUMMARY: DATE OF ADMISSION: 02/15/19 DATE OF DISCHARGE: 02/15/19 STATUS: Observation. PRIMARY DIAGNOSIS: Rectal bleeding due to hemorrhoids. SECONDARY DIAGNOSES: 1. Suspicion of diverticular bleeding. 2. Mild dementia. 3. History of retinal detachment. 4. Osteoarthritis. 5. History of squamous cell lung carcinoma, status post right pneumonectomy. 6. History of right hip fracture. 7. History of GI bleed, 2012. 8. Aortic stenosis with TAVR in September 2017. 9. Gastroesophageal reflux disease. 10. Iron deficiency anemia. 11. Hypertension. MEDICATIONS ON DISCHARGE: 1. Acetaminophen as needed. 2. Aspirin 81 mg p.o. daily. 3. Biotin 1 per day. 4. Vitamin D 1000 units p.o. daily. 5. Diltiazem CD 120 mg p.o. daily. 6. Donepezil 5 mg p.o. at bedtime. 7. Ferrous sulfate 65 mg p.o. b.i.d. 8. Ginkgo biloba 1 tab daily. 9. Lorazepam 0.5 mg p.o. b.i.d. p.r.n. anxiety. 10. Multivitamins 1 tablet p.o. daily. 11. Nitroglycerin patch 0.1 mg per hour topically daily. 12. Nitroglycerin tablet 0.4 mg sublingual q.5 minutes x3 p.r.n. chest pain. 13. Omeprazole 20 mg p.o. daily. 14. Potassium chloride 20 mEq p.o. daily. 15. CoQ10 of 100 mg p.o. daily. 16. Hydrocortisone suppository 25 mg b.i.d. p.r.n. for hemorrhoids. 17. Metoprolol 25 mg p.o. b.i.d. HOSPITAL COURSE: The patient was admitted to the ER with profuse rectal bleeding that could not be m anaged at home by the patient and her daughter. Physical exam in the ER was notable for external hem orrhoids and crusting around the hemorrhoids. Her initial hemoglobin was 10.2 which is down from 11.6 a week prior to admission. On the morning after admission, the patient's hemoglobin was down to 9.8, and there was no further significant rectal bleeding. The patient had been treated with suppository in the ER. I had a long discussion with daughter and the patient on the morning after admission. They understoo d that the blood loss was not significantly adding to her anemia, but that the blood loss was intract able at home the day prior. We discussed staying at hospital for Gastroenterology consult, possible anoscopy, sigmoidoscopy to rule out diverticular bleeding versus hemorrhoidal bleeding. This patient is not on major anticoagulants and remains on aspirin 81 mg p.o. daily. The patient and daughter amandeep cted to allow discharge and agreed to follow up with Gastroenterology as an outpatient. If diverticu lar bleeding is ruled out, the patient can be referred to Surgery for elective hemorrhoidectomy if bl eeding continues. The patient's other chronic medical problems including aortic valve disease and hypertension were sta ble during the hospital stay. Her discharge blood pressure was 143/88. There were no other signific ant laboratory abnormalities noted during the hospital stay other than a blood glucose of 204 on admi ssion, which random blood sugar of 200 could indicate diabetes. STATUS: Inpatient. CONDITION: Stable. DIET: Low salt, low fat. ACTIVITY: As tolerated. DISPOSITION: To home where she lives with her daughter. [id number]/[facility] #: [id number]
== END 2019-02-15 13:30 | disposition home or self-care (01) ==
LOC: ED 21:51 → MED 02-15 00:06
PROVIDERS: ADMIT Pediatrics; ATTEND Internal Medicine
DX: K64.9 Unspecified hemorrhoids (principal); F03.90 Unspecified dementia, unspecified severity, without behavioral disturbance, psychotic disturbance, mood disturbance, and anxiety; H33.20 Serous retinal detachment, unspecified eye; M19.90 Unspecified osteoarthritis, unspecified site; Z85.118 Personal history of other malignant neoplasm of bronchus and lung; Z90.2 Acquired absence of lung [part of]; Z87.81 Personal history of (healed) traumatic fracture; Z87.19 Personal history of other diseases of the digestive system; I35.0 Nonrheumatic aortic (valve) stenosis; Z95.2 Presence of prosthetic heart valve; K21.9 Gastro-esophageal reflux disease without esophagitis; D50.9 Iron deficiency anemia, unspecified; I10 Essential (primary) hypertension; Z79.82 Long term (current) use of aspirin; Z79.899 Other long term (current) drug therapy; Z90.49 Acquired absence of other specified parts of digestive tract; Z87.891 Personal history of nicotine dependence; I25.10 Atherosclerotic heart disease of native coronary artery without angina pectoris; Z95.0 Presence of cardiac pacemaker
CPT/HCPCS: 36415; 80048; 80053; 85025; 85610; 85730; 86850; 86900; 86901; 93005; 96374; 99283; A9270-GY; G0378; J2405

== ENCOUNTER 2020-12-03 15:11 | Inpatient (IN) ==
[2020-12-03 17:21] LABS: ALT 10 U/L (7-52); Albumin 4.3 g/dL (3.2-5.2); Albumin/Globulin Ratio 1.4 (1-3); Alkaline Phosphatase 112 U/L (34-104); BUN/Creatinine Ratio 21.9 (8-20); Blood Urea Nitrogen 14 mg/dL (6-24); CO2 Carbon Dioxide 39 mmol/L (22-32); Calcium 9.7 mg/dL (8.6-10.3); Chloride 97 mmol/L (101-111); EGFR African American 105.7 (>60); EGFR Non-African American 87.4 (>60); Glucose 297 mg/dL (70-100); Sodium 140 mmol/L (135-145); Total Protein 7.3 g/dL (6.4-8.9)
[2020-12-03 17:30] LABS: ABS Basophils 0.1 10^3/ul (0-0.2); ABS Lymphocytes 0.6 10^3/ul (1.0-4.8); ABS Monocytes 4.9 10^3/ul (0-0.8); ABS Neutrophils 9.7 10^3/ul (1.5-7.7); Eosinophil % 0.1 %; Hematocrit 35 % (35-47); Hemoglobin 11.4 g/dL (12.0-16.0); Lymphocyte % 4.1 %; Mean Corpuscular HGB Conc 33 g/dL (31-36); Mean Corpuscular Hemoglobin 33 pg (27-31); Mean Corpuscular Volume 101 fL (80-97); Mean Platelet Volume 9.4 fL (7.4-10.4); Platelet Count 135 10^3/uL (150-450); Red Blood Count 3.49 10^6 /uL (3.70-4.87); Red Cell Distribution Width 13 % (10-15); White Blood Count 15.3 10^3/uL (3.5-10.8)
[2020-12-03 17:34] LABS: Urine Appearance Cloudy; Urine Bilirubin Negative (Negative); Urine Blood Negative (Negative); Urine Color Yellow; Urine Glucose 3+(>=500 mg/dL) (Negative); Urine Ketones Negative (Negative); Urine Nitrite Negative (Negative); Urine Protein 2+(100 mg/dL) (Negative); Urine Specific Gravity 1.016 (1.002-1.030); Urine Urobilinogen Positive (Negative)
[2020-12-03 18:00] LABS: Urine Bacteria 1+ (Absent); Urine Red Blood Cell 3+(>10/hpf) (Absent); Urine Squamous Epithelial Cell Present (Absent); Urine White Blood Cell 3+(>20/hpf) (Absent)
[2020-12-03 18:20] LABS: Anion Gap 4 mmol/L (2-11)
[2020-12-03] MEDS ORDERED: Amoxicillin/Clavul 500/125 TAB (Augmentin 500 mg tab) PO ONE (18:39)
[2020-12-03] MEDS ORDERED: NS 0.9% 1000 ml BAG 1,000 ML IV ONE (18:42)
[2020-12-03] MEDS ORDERED: Al Hydrox/Mg Hydrox/Simet LIQ 30 ML UDC PO PRN (20:27)
[2020-12-03 21:06] LABS: INR 1.26 (0.82-1.09)
[2020-12-03 21:26] LABS: Potassium Redraw 4.1 mmol/L (3.5-5.0)
[2020-12-03] MEDS: Heparin 5000 UNITS/ML 1 mL VIAL SUBCUT SCH (23:26)
[2020-12-03] MEDS: cefTRIAXone 1 gm/50 mL NS BAG 1 GM/50 ML BAG IVPB SCH (23:34)
[2020-12-04 05:47] LABS: Hematocrit 33 % (35-47); Hemoglobin 10.6 g/dL (12.0-16.0); Mean Corpuscular HGB Conc 32 g/dL (31-36); Mean Corpuscular Hemoglobin 33 pg (27-31); Mean Corpuscular Volume 100 fL (80-97); Mean Platelet Volume 8.4 fL (7.4-10.4); Platelet Count 150 10^3/uL (150-450); Red Blood Count 3.25 10^6 /uL (3.70-4.87); Red Cell Distribution Width 13 % (10-15); White Blood Count 11.9 10^3/uL (3.5-10.8)
[2020-12-04 05:50] LABS: ABS Lymphocytes 0.7 10^3/ul (1.0-4.8); ABS Neutrophils 7.2 10^3/ul (1.5-7.7)
[2020-12-04] MEDS: Heparin 5000 UNITS/ML 1 mL VIAL SUBCUT SCH ×3 (06:00→20:38)
[2020-12-04 06:07] LABS: BUN/Creatinine Ratio 21.2 (8-20); Calcium 9.1 mg/dL (8.6-10.3); EGFR African American 134.3 (>60); Potassium 3.7 mmol/L (3.5-5.0)
[2020-12-04] MEDS: Nitroglycerin 0.4 mg/hr PATCH (10 mg) TRANSDERM SCH (07:38)
[2020-12-04] MEDS: Potassium Chlor 20 meq TAB.ER PO SCH (07:39)
[2020-12-04] MEDS: Aspirin EC 81 mg TAB.EC (enteric coated) PO SCH (07:39)
[2020-12-04 08:24] LABS: Magnesium 1.7 mg/dL (1.9-2.7)
[2020-12-04] MEDS ORDERED: Ondansetron 4 mg VIAL 2 MG/ML 2 ml VIAL IV PRN (09:47)
[2020-12-04 15:14] LABS: TSH Ultra Thyroid Stim Horm 1.53 mcIU/mL (0.34-5.60)
[2020-12-04 15:28] LABS: Vitamin D Total 25(OH) 7.8 ng/mL (20-50)
[2020-12-04] MEDS: cefTRIAXone 1 gm/50 mL NS BAG 1 GM/50 ML BAG IVPB SCH (20:36)
[2020-12-05] MEDS: Heparin 5000 UNITS/ML 1 mL VIAL SUBCUT SCH ×3 (06:05→20:04)
[2020-12-05 06:09] LABS: Hematocrit 31 % (35-47); Hemoglobin 10.3 g/dL (12.0-16.0); Mean Corpuscular HGB Conc 34 g/dL (31-36); Mean Corpuscular Hemoglobin 33 pg (27-31); Mean Corpuscular Volume 99 fL (80-97); Mean Platelet Volume 8.3 fL (7.4-10.4); Platelet Count 160 10^3/uL (150-450); Red Cell Distribution Width 13 % (10-15); White Blood Count 10.2 10^3/uL (3.5-10.8)
[2020-12-05 06:21] LABS: ABS Lymphocytes 0.8 10^3/ul (1.0-4.8); ABS Monocytes 3.1 10^3/ul (0-0.8); ABS Neutrophils 6.2 10^3/ul (1.5-7.7); Eosinophil % 0.1 %; Lymphocyte % 7.5 %
[2020-12-05 06:25] LABS: BUN/Creatinine Ratio 18.5 (8-20); Calcium 9.4 mg/dL (8.6-10.3); EGFR African American 103.8 (>60); EGFR Non-African American 85.8 (>60); Magnesium 1.8 mg/dL (1.9-2.7); Potassium 4.1 mmol/L (3.5-5.0)
[2020-12-05] MEDS: Potassium Chlor 20 meq TAB.ER PO SCH (10:11)
[2020-12-05] MEDS: Nitroglycerin 0.4 mg/hr PATCH (10 mg) TRANSDERM SCH (10:12)
[2020-12-05] MEDS: Aspirin EC 81 mg TAB.EC (enteric coated) PO SCH (10:12)
[2020-12-06] MEDS: Heparin 5000 UNITS/ML 1 mL VIAL SUBCUT SCH ×3 (05:14→20:18)
[2020-12-06] MEDS: Nitroglycerin 0.4 mg/hr PATCH (10 mg) TRANSDERM SCH (08:34)
[2020-12-06] MEDS: Aspirin EC 81 mg TAB.EC (enteric coated) PO SCH (08:35)
[2020-12-06] MEDS: Potassium Chlor 20 meq TAB.ER PO SCH (08:35)
[2020-12-07] MEDS: Heparin 5000 UNITS/ML 1 mL VIAL SUBCUT SCH ×3 (05:59→20:56)
[2020-12-07] MEDS: Potassium Chlor 20 meq TAB.ER PO SCH (08:47)
[2020-12-07] MEDS: Aspirin EC 81 mg TAB.EC (enteric coated) PO SCH (08:47)
[2020-12-07] MEDS: Nitroglycerin 0.4 mg/hr PATCH (10 mg) TRANSDERM SCH (08:47)
[2020-12-07] MEDS ORDERED: Senna TAB 8.6 mg TAB PO PRN (13:48)
[2020-12-07] MEDS: Polyethylene Glycol 3350 17 GM PACKET PO PRN (15:05)
[2020-12-08] MEDS: Heparin 5000 UNITS/ML 1 mL VIAL SUBCUT SCH ×3 (06:14→21:11)
[2020-12-08] MEDS: Nitroglycerin 0.4 mg/hr PATCH (10 mg) TRANSDERM SCH (08:58)
[2020-12-08] MEDS: Aspirin EC 81 mg TAB.EC (enteric coated) PO SCH (08:59)
[2020-12-08] MEDS: Potassium Chlor 20 meq TAB.ER PO SCH (09:00)
[2020-12-09] MEDS: Heparin 5000 UNITS/ML 1 mL VIAL SUBCUT SCH ×3 (06:24→21:41)
[2020-12-09 06:39] LABS: BUN/Creatinine Ratio 24.7 (8-20); Calcium 9.4 mg/dL (8.6-10.3); EGFR African American 90.8 (>60); EGFR Non-African American 75.1 (>60); Magnesium 2.1 mg/dL (1.9-2.7); Potassium 4.3 mmol/L (3.5-5.0)
[2020-12-09] MEDS: Potassium Chlor 20 meq TAB.ER PO SCH (10:08)
[2020-12-09] MEDS: Aspirin EC 81 mg TAB.EC (enteric coated) PO SCH (10:08)
[2020-12-09] MEDS: Nitroglycerin 0.4 mg/hr PATCH (10 mg) TRANSDERM SCH (10:10)
[2020-12-09 12:57] LABS: Urine Appearance Clear; Urine Bilirubin Negative (Negative); Urine Blood 2+ (Negative); Urine Color Straw; Urine Glucose Negative (Negative); Urine Ketones Negative (Negative); Urine Nitrite Negative (Negative); Urine Protein Negative (Negative); Urine Specific Gravity 1.009 (1.002-1.030); Urine Urobilinogen Negative (Negative)
[2020-12-09 13:16] LABS: Urine Bacteria Absent (Absent); Urine Red Blood Cell 3+(>10/hpf) (Absent); Urine Squamous Epithelial Cell Present (Absent); Urine White Blood Cell Trace(0-5/hpf) (Absent)
[2020-12-10] MEDS: Heparin 5000 UNITS/ML 1 mL VIAL SUBCUT SCH (06:03)
[2020-12-10 08:48] VITALS: BP 135/55
[2020-12-10] MEDS: Aspirin EC 81 mg TAB.EC (enteric coated) PO SCH (10:24)
[2020-12-10] MEDS: Potassium Chlor 20 meq TAB.ER PO SCH (10:26)
[2020-12-10] MEDS: Nitroglycerin 0.4 mg/hr PATCH (10 mg) TRANSDERM SCH (10:27)
[2020-12-10] MEDS: Polyethylene Glycol 3350 17 GM PACKET PO PRN (10:28)
== END 2020-12-10 12:15 | DRG 563 ==
LOC: ED 15:11 → MED 21:36
PROVIDERS: ADMIT Internal Medicine; ATTEND Internal Medicine